=== PATIENT | female | born 1985 | race African-American/Black ===

== ENCOUNTER → 2016-08-16 | Outpatient (CLI) | payer MEDICAID | LOC: RAD 13:49 | PROVIDERS: ATTEND Nurse Practitioner Acute Care | DX: R22.1 Localized swelling, mass and lump, neck (principal) | CPT/HCPCS: 70491 ==

== ENCOUNTER 2016-09-09 08:08 | Outpatient (CLI) | payer MEDICAID ==
[~2016-09-09 08:08] MED LIST: FERRIC CARBOXYMALTOSE 750 MG in NORMAL SALINE 250 ML IV PRN; NORMAL SALINE 250 ML IV PRN
[2016-09-09 08:31] VITALS: BP 96/59
== END 2016-09-09 09:00 | disposition home or self-care (01) ==
LOC: II 08:08 → 5TH 08:09 → II 09:00
PROVIDERS: ATTEND Internal Medicine
PROC: 3E033GC Introduction of Other Therapeutic Substance into Peripheral Vein, Percutaneous Approach (ICD-10-PCS; principal; 2016-09-09)
DX: D50.8 Other iron deficiency anemias (principal); K90.9 Intestinal malabsorption, unspecified
CPT/HCPCS: 96374; J7050; J1439; 96367

== ENCOUNTER 2016-10-20 11:53 | Day surgery (SDC) | payer MEDICAID ==
[2016-10-13 10:51] LABS: HEMATOCRIT 37.2 % (36.0-47.0); HEMOGLOBIN 12.4 g/dL (12.0-15.5); MEAN CORPUSCULAR HEMOGLOBIN 28.9 pg (27.0-33.4); MEAN CORPUSCULAR HGB CONC 33.3 g/dL (32.0-36.0); MEAN CORPUSCULAR VOLUME 87 fl (80-97); RED BLOOD COUNT 4.28 10^6/uL (3.72-5.28); RED CELL DISTRIBUTION WIDTH 20.5 % (11.5-14.0); WHITE BLOOD COUNT 4.4 10^3/uL (4.0-10.5)
[~2016-10-20 11:53] MED LIST changes: +CEFAZOLIN 1 GM/D5W RTU 1 GM/50 ML RTUPB IV PRN; +DEXTROSE 5%-LACTATED RINGERS 1,000 ML IV PRN; -FERRIC CARBOXYMALTOSE 750 MG in NORMAL SALINE 250 ML IV PRN; -NORMAL SALINE 250 ML IV PRN; +RINGERS SOLUTION,LACTATED 1,000 ML IV PRN
[2016-10-20] MEDS ORDERED: LIDOCAINE 1% INJ-PF (10 MG/ML) 30 ML SDV ONE (12:24)
[2016-10-20] MEDS ORDERED: ONDANSETRON HCL INJ/PF 4 MG/2 ML SDV ONE (13:10)
[2016-10-20] MEDS ORDERED: DEXAMETHASONE SOD PHOSPHATE INJ 4 MG/1 ML VIAL ONE (13:10)
[2016-10-20] MEDS ORDERED: SUCCINYLCHOLINE CHLORIDE INJ 200 MG/10 ML VIAL ONE (13:10)
[2016-10-20] MEDS ORDERED: ROCURONIUM BROMIDE INJ 50 MG/5 ML VIAL IV ONE (13:10)
[2016-10-20 13:11] LABS: HEMATOCRIT 35.6 % (36.0-47.0); HEMOGLOBIN 12.1 g/dL (12.0-15.5); HGB HCT DIFFERENCE 0.7; MEAN CORPUSCULAR HEMOGLOBIN 29.8 pg (27.0-33.4); MEAN CORPUSCULAR HGB CONC 33.9 g/dL (32.0-36.0); MEAN CORPUSCULAR VOLUME 88 fl (80-97); RED BLOOD COUNT 4.06 10^6/uL (3.72-5.28); RED CELL DISTRIBUTION WIDTH 19.8 % (11.5-14.0); WHITE BLOOD COUNT 3.8 10^3/uL (4.0-10.5)
[2016-10-20] MEDS ORDERED: PROPOFOL INJ 200 MG/20 ML VIAL IV ONE (13:53)
[2016-10-20] MEDS ORDERED: ACETAMINOPHEN 100 ML IV ONE (13:53)
[2016-10-20] MEDS ORDERED: HYDROMORPHONE HCL INJ/PF 2 MG/ML AMPULE ONE (13:53)
[2016-10-20] MEDS ORDERED: MIDAZOLAM 2 MG/2 ML INJ ONE (13:53)
[2016-10-20] MEDS ORDERED: PROMETHAZINE HCL INJ 25 MG/1 ML VIAL IV PRN ×2 (15:14)
[2016-10-20] MEDS ORDERED: MORPHINE SULFATE 10 MG/ML INJ IV PRN (15:14)
[2016-10-20] MEDS ORDERED: OXYCODONE-ACETAMINOPHEN 5-325 MG TABLET PO PRN ×3 (15:14→16:46)
[2016-10-20] MEDS ORDERED: DIPHENHYDRAMINE HCL 50 MG/ML VIAL IV PRN (15:14)
[2016-10-20] MEDS ORDERED: MEPERIDINE HCL/PF INJ 25 MG/1 ML DISP.SYRIN IV PRN (15:14)
[2016-10-20] MEDS ORDERED: FENTANYL CITRATE INJ/PF 100 MCG/2 ML AMPUL IV PRN ×3 (15:14)
[2016-10-20] MEDS ORDERED: MICROFIBRILLAR COLLAGEN 1 GM PACK ONE (15:49)
[2016-10-20] MEDS ORDERED: ONDANSETRON HCL INJ/PF 4 MG/2 ML SDV IV PRN (16:46)
--- NOTE | 2016-10-20 16:46 | Operative Report ---
Operative Report DATE OF SURGERY: 10/20/16 PREOPERATIVE DIAGNOSIS: Right neck mass consistent with cervical adenopathy POSTOPERATIVE DIAGNOSIS: Same OPERATION: 1. Focused ultrasound of the neck. 2. Open excisional biopsy of enlarged level II cervical lymph node SURGEON: HOLLY HEREDIA 1ST STAFF AUDITOR: KHLOE DEAN ANESTHESIA: GA TISSUE REMOVED OR ALTERED: Enlarged right level II cervical lymph node COMPLICATIONS: None ESTIMATED BLOOD LOSS: scant INTRAOPERATIVE FINDINGS: See below PROCEDURE: The patient was seen in the preoperative holding area the right neck was marked. She was then taken to the operating room where general anesthesia was induced. The patient's neck was exposed, and extended so that the right side of the neck was in the future operative field. The right neck and anterior chest sterile fashion. Surgical plan and surgical timeout conducted. The palpable mass at the angle of the right mandible just anterior to the submandibular gland was marked. I then scanned the neck with a variable frequency linear transducer confirmed the mass which was over 3 cm in length and 2 cm wide. It was just deep to the platysma, and anterior to the great vessels. It was inferior and posterior to the right submandibular gland. The skin was anesthetized with 1% lidocaine without epinephrine. A 3-1/2 cm incision was made proximally 2 fingerbreadths below the mandible, with the incision made on a diagonal. The cutaneous tissue, platysma divided all under direct visualization with electrocautery. Official cervical fascia was divided , and the cut down directly onto the enlarged right neck mass consistent with the level II lymph node. We now proceeded methodically under direct visualization with loupes and headlamp to dissected this enlarged mass from its surrounding charts. Clinically the mass appeared to be consistent with a very enlarged lymph node. It shelled out of its very smoothly. There were multiple small arterial and venous attachments which were taken down with electrocautery as well as small clips. We encountered no neuro-logic tissue as we were anterior to the spinal accessory nerve, inferior to the marginal mandibular nerve and not as deep going counter the lingula nerve. Once the mass came up out of its compartment, the final attachments including to the superior and inferior lymph nodes in the cervical-jugular chain were freed up. The specimen was passed off the table photographed and found to be approximately 4 cm in length. We reinspected our operative field and there was no evidence of bleeding. Changes as well as this point included the deep cervical fascia. We did not Violate any of the deep tissue planes; the the posterior belly of the digastric muscle was visible in the upper recesses of the wound. The sternocleidomastoid muscle anterior order of the wound. Avitene was placed in the recesses of the wound and the wound closed in layers with 3-0 Vicryl leaving the platysma muscle , and the skin closed with 4-0 Ethilon in a running continuous fashion. Steri- Strips applied. She tolerated the procedure well and was taken to recovery in stable condition. The physician assistant to the ceo, Ms. Dean, provided assistance during this case by: Assisting , retracting tissue, instillation of local anesthesia and closure of skin incisions.
[2016-10-20] MEDS ORDERED: METOCLOPRAMIDE HCL INJ/PF 10 MG/2 ML SDV ONE (16:50)
--- NOTE | 2016-10-20 16:50 | PDOC DISCHARGE SUMMARY ---
Discharge Summary (SDC) - Discharge Final Diagnosis: Cervical lymphadenopathy right neck level II Date of Surgery: 10/20/16 Discharge Date: 10/20/16 Condition: Good Treatment or Instructions: [facility] [address] [place] [id number] Discharge Instructions: Neck Surgery 1. General Information: a. Do not drive a car or operate machinery for 1-2 weeks or as long as taking narcotics for pain. b. Do not consume alcohol, tranquilizers, sleeping medications or any non- prescribed medications for 24 hours unless approved by your doctor or as long as taking pain medication. c. Do not make important decisions or sign any important papers for the first 24 hours after surgery. d. When discharged home the same day of surgery have a responsible person with you for the first night. 2. Activity Restrictions: 4 weeks. a. Avoid heavy lifting > 10 lbs, straining, sports, mowing lawn, shoveling snow, vacuum cleaning and bending over a lot. Limit bending to taking a shower and getting dressed. Sleep with head elevated (2 pillows). b. Walking is important to avoid blood clots in the legs and deep breathing can prevent pneumonia. c. It is fine to go up and down steps, ride in a car, and use a stationary bike with low resistance. 3. Treatment: a. The dressing can be removed the day after surgery and to shower then daily is fine, but you should not bathe in the tub or go swimming for 2 weeks. The paper strips (steri-strips) on the skin will fall off and can get wet with a shower, just pat them dry. The sutures dissolve and the strips will be removed in the office on your follow up visit if they have not fallen off by then. May shower 24 hours after surgery; if your incision was glued you may wash your neck and expect glue to fall off in about 2 weeks. b. Do not use oils, powders or lotion on your incision until after the first postoperative visit. Then you may begin to apply daily to the incision a cream of your choice (Vitamin E, cocoa butter, scar creams) to help soften the scar. c. If you are fair skinned it would be yarbrough to use sunscreen on the scar for the first 6 months or keep it covered to avoid tanning pigment deposits being trapped in the scar creating a dark line instead of a pink scar. 4. Medications: a. You may take narcotic prescription tablets for pain if needed, one or two every 4 hours (Percocet ). b. Stop the narcotic when able since you cannot take and drive and they may cause constipation. You may switch to plain Tylenol, Advil or Aleve as you transition from the narcotic. Many adults find good pain relief with Ibuprofen 600-800 mg three times a day with meals to work well to avoid narcotic use. High doses of Ibuprofen should only be used for short courses since it can cause indigestion, ulcer bleeding in the stomach and harm kidney function. c. You should resume all normal medications unless a change is specified by your doctors. d. a. If going home same day of surgery you should begin with clear liquids and if do well then advance to a normal diet with foods low in fat and protein. Small portion sizes may be yarbrough the first night to lessen risk of vomiting. b. When discharged after a hospital stay you may resume a normal diet. 6. Notify Physician If: a. Worsening of pain or swelling in neck, persistent bleeding at the operative site, nausea and vomiting, fever above 101, unable to urinate and bladder pressure after 8-12 hours, increased redness, drainage, or foul smelling discharge from the incision. b. If you have difficulty breathing or chest pain, call an ambulance and/or go to the Emergency Room. 7. Follow Up Care: a. Schedule a follow up appointment with your doctor for 2 weeks. In the event of any postoperative problems or questions or you may call the office during business hours or the On-Call physician evenings and weekends at [facility]. [facility] 8. I understand the instructions for my postoperative care as described above and a copy has been given to me. Patient/Significant Other Witness Date Prescriptions: Oxycodone HCl/Acetaminophen [Percocet 5-325 mg Tablet] 2 tab PO ASDIR PRN #15 tab PRN Reason: Discharge Diet: Regular Discharge Activity: No Lifting Over 10 Pounds, No Lifting/Push/Pulling Home Care Assistance: None Needed Report the Following to Your Physician Immediately: Shortness of Breath, Increase in Pain, Fever over 101 Degrees
[2016-10-20] MEDS: PROMETHAZINE HCL 25 MG SUPP.RECT PR ONE ×2 (18:05→21:55)
[2016-10-20 21:38] VITALS: BP 108/72
== END 2016-10-20 22:10 | disposition home or self-care (01) ==
LOC: OROUT 11:53 → 2S 19:32 → OROUT 22:10
PROVIDERS: ATTEND Surgery
PROC: 07B10ZX Excision of Right Neck Lymphatic, Open Approach, Diagnostic (ICD-10-PCS; principal; 2016-10-20 15:00)
DX: R59.9 Enlarged lymph nodes, unspecified (principal); D64.9 Anemia, unspecified; R51 Headache; Z87.891 Personal history of nicotine dependence
CPT/HCPCS: 38500; 36415 ×2; 88185 ×15; 88184; 85027 ×2; 81025; 88342 ×2; 88341 ×2; 88307 ×2; J2250; J0690; J3490 ×4; J1100; J2765; J1170; J0330; J2405; J2704; J0131; 300

== ENCOUNTER → 2016-12-21 | Outpatient (CLI) | payer MEDICAID ==
--- NOTE | 2016-12-21 15:39 | RADIOLOGY REPORT (SQ) ---
EXAM DESCRIPTION: HAND RIGHT 3 VIEWS COMPLETED DATE/TIME: 12/21/2016 3:31 pm REASON FOR STUDY: UNSP INJURY OF RIGHT WRIST, HAND AND FINGER(S), INIT ENCNTR S69.91XA UNSP INJURY OF RIGHT WRIST, HAND AND FINGER(S), INI COMPARISON: None. EXAM PARAMETERS: NUMBER OF VIEWS: Three views. TECHNIQUE: AP, lateral and oblique radiographic images acquired of the right hand. LIMITATIONS: None. FINDINGS: MINERALIZATION: Normal. BONES: No acute fracture or dislocation. No worrisome bone lesions. JOINTS: No effusions. SOFT TISSUES: No soft tissue swelling. No foreign body. OTHER: No other significant finding. IMPRESSION: NEGATIVE STUDY OF THE RIGHT HAND. NO RADIOGRAPHIC EVIDENCE OF ACUTE INJURY. TECHNICAL DOCUMENTATION: JOB ID: [id number] [employer]- All Rights Reserved
== END ==
LOC: OD 15:08
PROVIDERS: ATTEND Nurse Practitioner Acute Care
DX: S69.91XA Unspecified injury of right wrist, hand and finger(s), initial encounter (principal); X58.XXXA Exposure to other specified factors, initial encounter

== ENCOUNTER 2017-01-06 15:49 | Emergency (ER) | payer MEDICAID ==
[2017-01-06 16:41] LABS: ABSOLUTE LYMPHOCYTES (AUTO) 0.8 10^3/uL (0.5-4.7); ABSOLUTE MONOCYTES (AUTO) 0.3 10^3/uL (0.1-1.4); ABSOLUTE NEUT (AUTO) 5.2 10^3/uL (1.7-8.2); BASOPHILS % (AUTO) 0.3 % (0-2); EOSINOPHILS % (AUTO) 0.1 % (0-6); HEMATOCRIT 36.9 % (36.0-47.0); HEMOGLOBIN 12.3 g/dL (12.0-15.5); LYMPHOCYTES % (AUTO) 12.2 % (13-45); MEAN CORPUSCULAR HGB CONC 33.3 g/dL (32.0-36.0); MEAN CORPUSCULAR VOLUME 93 fl (80-97); MONOCYTES % (AUTO) 5.1 % (3-13); RED BLOOD COUNT 3.96 10^6/uL (3.72-5.28); RED CELL DISTRIBUTION WIDTH 12.9 % (11.5-14.0); SEGMENTED NEUTROPHILS % (AUTO) 82.3 % (42-78); WHITE BLOOD COUNT 6.3 10^3/uL (4.0-10.5)
[2017-01-06 17:25] LABS: ALANINE AMINOTRANSFERASE 28 U/L (9-52); ALBUMIN 3.3 g/dL (3.5-5.0); ALKALINE PHOSPHATASE 52 U/L (38-126); ANION GAP 11 (5-19); ASPARTATE AMINO TRANSFERASE 23 U/L (14-36); BILIRUBIN,DIRECT 0.3 mg/dL (0.0-0.4); BILIRUBIN,TOTAL 0.8 mg/dL (0.2-1.3); BLOOD UREA NITROGEN 6 mg/dL (7-20); CALCIUM 8.8 mg/dL (8.4-10.2); CARBON DIOXIDE 22 mmol/L (22-30); CHLORIDE 108 mmol/L (98-107); CREATININE RESULT 0.62 mg/dL (0.52-1.25); GLUCOSE 76 mg/dL (75-110); POTASSIUM 3.9 mmol/L (3.6-5.0); SODIUM 140.9 mmol/L (137-145); TOTAL PROTEIN 6.3 g/dL (6.3-8.2)
[2017-01-06] MEDS ORDERED: RINGERS SOLUTION,LACTATED 1,000 ML IV PRN (17:26)
[2017-01-06] MEDS ORDERED: LORAZEPAM INJ 2 MG/1 ML VIAL IV ONE (17:26)
[2017-01-06] MEDS ORDERED: LEVETIRACETAM 1500 MG/NACL-ISO 100 ML IV ONE (17:26)
[2017-01-06 17:27] LABS: ALCOHOL < 10 mg/dL (NONE DETECTED)
--- NOTE | 2017-01-06 17:27 | ER Document Report ---
ED Seizure - General Chief Complaint: Probable Seizure Stated Complaint: POSSIBLE SEIZURE Time Seen by Provider: 01/06/17 17:10 Mode of Arrival: Ambulatory Information source: Patient Notes: Patient is a 31-year-old female with a history of seizures who presents to the ER today for seizure prior to arrival. Patient states that she used to be on Keppra but they took her off because she had not had any seizures in a long time. She has not been on Keppra for 2 years. Patient states that today she was laying in bed and woke up to her brother standing over her and she had urinated on herself and bitten her tongue. She states that her brother witnessed a seizure and states that she was generalized shaking. She does not remember the seizure activity. She denies any recent illness. - Related Data Allergies/Adverse Reactions: No Known Allergies Allergy (Verified 01/06/17 15:56) Home Medications: Current Home Medications Aspirin/Caffeine [Bc Powder Packet] 1 pkt PO DAILY 01/06/17 [History] Past Medical History - General Information source: Patient - Social History Smoking Status: Never Smoker Frequency of alcohol use: Occasional Drug Abuse: None Family History: Reviewed & Not Pertinent - Past Medical History Cardiac Medical History: Denies: Hx Coronary Artery Disease, Hx Heart Attack, Hx Hypertension Pulmonary Medical History: Denies: Hx Asthma, Hx Bronchitis, Hx COPD, Hx Pneumonia Neurological Medical History: Reports: Hx Seizures - SEIZURE X 1, 2 YEARS AGO, NO MEDS, NO SEIZURE SINCE. Denies: Hx Cerebrovascular Accident Musculoskeltal Medical History: Denies Hx Arthritis Past Surgical History: Reports: Hx Orthopedic Surgery - L ACL, Bilat shoulders w /hardware - Immunizations Hx Diphtheria, Pertussis, Tetanus Vaccination: Yes Review of Systems - Review of Systems Constitutional: No symptoms reported EENT: No symptoms reported Cardiovascular: No symptoms reported Respiratory: No symptoms reported Gastrointestinal: No symptoms reported Genitourinary: No symptoms reported Female Genitourinary: No symptoms reported Musculoskeletal: No symptoms reported Skin: No symptoms reported Hematologic/Lymphatic: No symptoms reported Neurological/Psychological: See HPI Physical Exam - Vital signs Vitals: Resp 18 01/06/17 15:50 - Notes Notes: PHYSICAL EXAMINATION: GENERAL: Appears postictal, tired, but in no acute distress. HEAD: Atraumatic, normocephalic. EYES: Pupils equal round and reactive to light, extraocular movements intact, sclera anicteric, conjunctiva are normal. ENT: Small laceration to the left side of the tongue, no active bleeding NECK: Normal range of motion, supple without lymphadenopathy LUNGS: CTAB and equal. No wheezes rales or rhonchi. HEART: Regular rate and rhythm without murmurs ABDOMEN: Soft, no tenderness. No guarding, no rebound BACK: no vertebral tenderness, normal ROM GI/: no CVA tenderness EXTREMITIES: Normal range of motion, no pitting edema. No cyanosis. NEUROLOGICAL: Appears postictal, otherwise cranial nerves grossly intact. Normal sensory/motor exams. PSYCH: Normal mood, normal affect. SKIN: Warm, Dry, normal turgor, no rashes or lesions noted Course - Re-evaluation Re-evalutation: 01/06/17 18:48 Patient was loaded up with IV Keppra here, fluids, Ativan. I will start patient on Keppra and have her follow-up with the neurologist outpatient. - Vital Signs Vital signs: Temp Pulse Resp BP Pulse Ox 98.3 F 20 107/66 97 01/06/17 15:55 01/06/17 18:27 01/06/17 18:27 01/06/17 18:27 - Laboratory Result Diagrams: 01/06/17 16:18 01/06/17 16:18 Laboratory results interpreted by me: 01/06/17 01/06/17 16:18 16:18 Plt Count 128 L Seg Neutrophils % 82.3 H Lymphocytes % 12.2 L Chloride 108 H BUN 6 L Albumin 3.3 L Discharge - Discharge Clinical Impression: Seizure Condition: Stable Disposition: HOME, SELF-CARE Additional Instructions: Return immediately for any new or worsening symptoms. Follow up with primary care provider, call tomorrow to make followup appointment. Prescriptions: Levetiracetam [Keppra 500 mg Tablet] 500 mg PO Q12 #40 tablet Forms: Return to Work Referrals: AIME WATTS PA-C [Primary Care Provider] - Follow up as needed KEYSHA PELAYO MD [ACTIVE STAFF] - Follow up as needed
[2017-01-06 18:34] VITALS: BP 107/66
[2017-01-06 19:11] LABS: APPEARANCE,URINE CLEAR; BILIRUBIN,URINE NEGATIVE (NEGATIVE); GLUCOSE, URINE NEGATIVE (NEGATIVE); KETONES,URINE NEGATIVE (NEGATIVE); LEUKOCYTE ESTERASE,URINE TRACE (NEGATIVE); NITRITE,URINE NEGATIVE (NEGATIVE); PROTEIN,URINE NEGATIVE (NEGATIVE); URINE SPECIFIC GRAVITY 1.006; UROBILINOGEN,URINE NEGATIVE mg/dL (<2.0)
[2017-01-06 19:21] LABS: URINE BARBITURATES SCREEN NEGATIVE; URINE METHADONE SCREEN NEGATIVE; URINE OPIATES LOW NEGATIVE; URINE PHENCYCLIDINE SCREEN NEGATIVE
== END 2017-01-06 18:57 | disposition home or self-care (01) ==
LOC: ER 15:49
DX: R56.9 Unspecified convulsions (principal); R32 Unspecified urinary incontinence
CPT/HCPCS: 99284; 96375; 96365; 96368; 36415; 80307 ×2; 83735; 84703; 85025; 80053; 81001; J2060; J7120; J1953

== ENCOUNTER 2017-02-07 23:14 | Emergency (ER) | payer MEDICAID ==
[2017-02-07 23:40] VITALS: BP 109/67
== END 2017-02-07 23:58 | disposition left against medical advice (07) ==
LOC: ER 23:14
DX: Z53.21 Procedure and treatment not carried out due to patient leaving prior to being seen by health care provider (principal)

== ENCOUNTER 2018-02-01 10:42 | Emergency (ER) | payer MEDICAID ==
[2018-02-01 10:48] VITALS: BP 111/71
--- NOTE | 2018-02-01 11:01 | ER Document Report ---
ED Medical Screen (RME) - General Chief Complaint: Facial Swelling Stated Complaint: FACIAL SWELLING Time Seen by Provider: 02/01/18 10:49 Mode of Arrival: Ambulatory Information source: Patient TRAVEL OUTSIDE OF THE [place] IN LAST 30 DAYS: No - HPI Patient complains to provider of: Left facial swelling Onset: This morning Onset/Duration: Gradual Quality of pain: Achy Severity: Mild Pain Level: 2 Exacerbated by: Denies Relieved by: Denies Notes: 02/01/18 11:01 Patient is a 32-year-old female presenting to the emergency room complaining of left facial swelling, 2 nights ago she had a seizure in the middle the night causing an injury to her left upper lip with laceration, [facility] was seen [facility] and they told her to perform salt water gargles and did not put her on any antibiotics, this morning when she woke up she noted her left face is swollen and painful - Related Data Allergies/Adverse Reactions: No Known Allergies Allergy (Verified 02/01/18 10:42) Past Medical History - Social History Frequency of alcohol use: Social Drug Abuse: Marijuana - Past Medical History Cardiac Medical History: Denies: Hx Coronary Artery Disease, Hx Heart Attack, Hx Hypertension Pulmonary Medical History: Denies: Hx Asthma, Hx Bronchitis, Hx COPD, Hx Pneumonia Neurological Medical History: Reports: Hx Seizures - SEIZURE X 1, 2 YEARS AGO, NO MEDS, NO SEIZURE SINCE. Denies: Hx Cerebrovascular Accident Renal/ Medical History: Denies: Hx Peritoneal Dialysis Musculoskeltal Medical History: Denies Hx Arthritis Past Surgical History: Reports: Hx Orthopedic Surgery - L ACL, Bilat shoulders w /hardware - Immunizations Hx Diphtheria, Pertussis, Tetanus Vaccination: Yes Physical Exam - Vital signs Vitals: Temp Pulse Resp BP Pulse Ox 98.6 F 69 14 111/71 100 02/01/18 10:46 02/01/18 10:46 02/01/18 10:46 02/01/18 10:46 02/01/18 10:46 Course - Vital Signs Vital signs: Temp Pulse Resp BP Pulse Ox 98.6 F 69 14 111/71 100 02/01/18 10:46 02/01/18 10:46 02/01/18 10:46 02/01/18 10:46 02/01/18 10:46 Doctor's Discharge - Discharge Referrals: PETRONA DE LEON MD [Primary Care Provider] - Follow up as needed
[2018-02-01 11:48] LABS: ABSOLUTE LYMPHOCYTES (AUTO) 1.2 10^3/uL (0.5-4.7); ABSOLUTE MONOCYTES (AUTO) 0.5 10^3/uL (0.1-1.4); ABSOLUTE NEUT (AUTO) 3.8 10^3/uL (1.7-8.2); BASOPHILS % (AUTO) 0.3 % (0-2); EOSINOPHILS % (AUTO) 0.3 % (0-6); HEMATOCRIT 36.6 % (36.0-47.0); HEMOGLOBIN 12.5 g/dL (12.0-15.5); LYMPHOCYTES % (AUTO) 22.1 % (13-45); MEAN CORPUSCULAR HEMOGLOBIN 29.8 pg (27.0-33.4); MEAN CORPUSCULAR VOLUME 88 fl (80-97); MONOCYTES % (AUTO) 8.6 % (3-13); PLATELET COUNT 144 10^3/uL (150-450); RED BLOOD COUNT 4.18 10^6/uL (3.72-5.28); RED CELL DISTRIBUTION WIDTH 13.3 % (11.5-14.0); SEGMENTED NEUTROPHILS % (AUTO) 68.7 % (42-78); TOTAL CELLS COUNTED % (AUTO) 100 %; WHITE BLOOD COUNT 5.5 10^3/uL (4.0-10.5)
[2018-02-01 12:14] LABS: ALANINE AMINOTRANSFERASE 35 U/L (9-52); ALBUMIN 3.9 g/dL (3.5-5.0); ALKALINE PHOSPHATASE 55 U/L (38-126); ANION GAP 11 (5-19); ASPARTATE AMINO TRANSFERASE 42 U/L (14-36); BILIRUBIN,DIRECT 0.2 mg/dL (0.0-0.4); BLOOD UREA NITROGEN 8 mg/dL (7-20); CARBON DIOXIDE 23 mmol/L (22-30); CHLORIDE 109 mmol/L (98-107); GLUCOSE 93 mg/dL (75-110); POTASSIUM 3.7 mmol/L (3.6-5.0); SODIUM 142.5 mmol/L (137-145); TOTAL PROTEIN 7.6 g/dL (6.3-8.2)
[2018-02-01] MEDS ORDERED: AMPICILLIN SOD/SULBACTAM 3 GM VIAL IV ONE (13:23)
--- NOTE | 2018-02-01 13:23 | RADIOLOGY REPORT (SQ) ---
EXAM DESCRIPTION: CT FACIAL AREA WITH COMPLETED DATE/TIME: 02/01/2018 12:43 pm REASON FOR STUDY: LEFT FACIAL SWELLING COMPARISON: CT soft tissue neck 08/16/2016 TECHNIQUE: Post contrast images through the facial bones and orbits windowed for bone and soft tissu e. Additional coronal and sagittal reconstructed images reviewed. All images stored on PACS. All CT scanners at this facility use dose modulation, iterative reconstruction, and/or weight based d osing when appropriate to reduce radiation dose to as low as reasonably achievable (ALARA). [facility]: Dose Right [facility]: CareDose [facility]: Dose Right [facility]: Teradose 4D [facility]: Storactive CONTRAST TYPE AND DOSE: contrast/concentration: Isovue 370.00 mg/ml; Total Contrast Delivered: 50.0 ml; Total Saline Delivered: 55.0 ml RENAL FUNCTION: None required. The patient is less than 50 years old. RADIATION DOSE: 45.4 mGy . LIMITATIONS: Streak artifact from metallic dental work FINDINGS: FACIAL BONES: No fracture or bone lesion. ORBITS: Intact. No fracture. Symmetric intact globes and retroorbital soft tissues. PARANASAL SINUSES: Mild mucous membrane thickening in the bilateral ethmoid air cells. subcentimeter cyst left sphenoid sinus No nasal polyps. Maxillary sinus outlets are patent. SOFT TISSUES: There is left facial soft tissue swelling over the left alveolar ridge and left mandibl e region, involving a 4 x 2 x 2 cm area. This could be a hematoma or could be related to cellulitis/ infection. Findings discussed with Paty Cruz in the emergency room. INFERIOR BRAIN: Limited view. No acute findings. OTHER: Prior enlarged lymph node right jugulodigastric region seen on CT soft tissue neck 08/16/2016 h as been surgically removed. Surgical clips are present superficial to the right carotid bifurcation. No adenopathy on today's study IMPRESSION: Soft tissue swelling overall 4 x 2 x 2 cm area of left lower alveolar ridge edge and man dible, cellulitis versus hematoma. No underlying mandible or facial fracture. TECHNICAL DOCUMENTATION: JOB ID: [id number] Quality ID # [id number]: Final reports with documentation of one or more dose reduction techniques (e.g., Au tomated exposure control, adjustment of the mA and/or kV according to patient size, use of iterative reconstruction technique) 2010 [employer]- All Rights Reserved Reading location - IP/workstation name: [email or web address]
[2018-02-01] MEDS ORDERED: KETOROLAC TROMETHAMINE INJ/PF 30 MG/1 ML SDV IV ONE (13:24)
--- NOTE | 2018-02-01 13:30 | ER Document Report ---
HPI - HPI Patient complains to provider of: Facial swelling Onset: This morning Onset/Duration: Gradual Quality of pain: Achy Pain Level: 2 Context: Patient states that she had a seizure and injured her face and mouth 2 days ago. [facility] having a [facility] and was told to just rinse her mouth out with gargles. Patient states today she woke up and her face was swollen. Patient denies any fever. Patient states she has been compliant with taking her antiepileptic medications and has not had any recent dose changes. Associated Symptoms: Other. denies: Fever Exacerbated by: Movement Relieved by: Denies Similar symptoms previously: No Recently seen / treated by doctor: Yes - ROS ROS below otherwise negative: Yes Systems Reviewed and Negative: Yes All other systems reviewed and negative - CONSTITUTIONAL Constitutional: DENIES: Fever - EENT Notes: Mouth pain and swelling - RESPIRATORY Respiratory: DENIES: Coughing - GASTROINTESTINAL Gastrointestinal: DENIES: Nausea, Patient vomiting - MUSCULOSKELETAL Musculoskeletal: DENIES: Extremity pain, Back Pain, Neck Pain - DERM Skin Color: Normal Notes: Laceration inside mouth into left facial area Past Medical History - General Information source: Patient - Social History Smoking Status: Never Smoker Frequency of alcohol use: Social Drug Abuse: Marijuana Occupation: None Lives with: Friend Family History: Reviewed & Not Pertinent Patient has suicidal ideation: No Patient has homicidal ideation: No - Past Medical History Cardiac Medical History: Denies: Hx Coronary Artery Disease, Hx Heart Attack, Hx Hypertension Pulmonary Medical History: Denies: Hx Asthma, Hx Bronchitis, Hx COPD, Hx Pneumonia Neurological Medical History: Reports: Hx Seizures - SEIZURE X 1, 2 YEARS AGO, NO MEDS, NO SEIZURE SINCE. Denies: Hx Cerebrovascular Accident Renal/ Medical History: Denies: Hx Peritoneal Dialysis Musculoskeletal Medical History: Denies Hx Arthritis Past Surgical History: Reports: Hx Orthopedic Surgery - L ACL, Bilat shoulders w /hardware - Immunizations Hx Diphtheria, Pertussis, Tetanus Vaccination: Yes Vertical Provider Document - CONSTITUTIONAL Agree With Documented VS: Yes Exam Limitations: No Limitations General Appearance: WD/WN, No Apparent Distress - INFECTION CONTROL TRAVEL OUTSIDE OF THE [place] IN LAST 30 DAYS: No - HEENT HEENT: Normocephalic, PERRLA Mouth Diagram: 1 - superficial lac with surrounding erythema, edema Notes: Superficial facial laceration to left side of face just lateral to left upper lip - NECK Neck: Normal Inspection, Supple. negative: Lymphadenopathy-Left, Lymphadenopathy-Right - RESPIRATORY Respiratory: Breath Sounds Normal, No Respiratory Distress - CARDIOVASCULAR Cardiovascular: Regular Rate, Regular Rhythm, No Murmur - BACK Back: Normal Inspection - MUSCULOSKELETAL/EXTREMETIES Musculoskeletal/Extremeties: MAEW - NEURO Level of Consciousness: Awake, Alert, Appropriate Motor/Sensory: No Motor Deficit - DERM Integumentary: Warm, Laceration - superficial. negative: Abscess Course - Re-evaluation Re-evalutation: 02/01/18 13:26 Patient without any drainable abscess noted on CT scan. No appreciable fracture. Patient without any potential airway compromise. Patient with superficial laceration to the inside left upper lip with overlying facial laceration, area does not appear to communicate. Injury occurred 2 days ago. Plan to treat for cellulitis at this time. Good return precautions given to patient. Patient encouraged to follow-up with her primary doctor tomorrow for recheck. Patient states she has been compliant with her antiepileptic medications. - Vital Signs Vital signs: Temp Pulse Resp BP Pulse Ox 98.6 F 69 14 111/71 100 02/01/18 10:46 02/01/18 10:46 02/01/18 10:46 02/01/18 10:46 02/01/18 10:46 - Laboratory Result Diagrams: 02/01/18 11:30 02/01/18 11:30 Laboratory results interpreted by me: 02/01/18 02/01/18 11:30 11:30 Plt Count 144 L Chloride 109 H AST 42 H 02/01/18 13:26 Labs- Entire Visit 02/01/18 02/01/18 02/01/18 11:30 11:30 11:30 WBC 5.5 RBC 4.18 Hgb 12.5 Hct 36.6 MCV 88 MCH 29.8 MCHC 34.0 RDW 13.3 Plt Count 144 L Seg Neutrophils % 68.7 Lymphocytes % 22.1 Monocytes % 8.6 Eosinophils % 0.3 Basophils % 0.3 Absolute Neutrophils 3.8 Absolute Lymphocytes 1.2 Absolute Monocytes 0.5 Absolute Eosinophils 0.0 Absolute Basophils 0.0 Sodium 142.5 Potassium 3.7 Chloride 109 H Carbon Dioxide 23 Anion Gap 11 BUN 8 Creatinine 0.55 Est GFR ( Amer) > 60 Est GFR (Non-Af Amer) > 60 Glucose 93 Calcium 9.0 Total Bilirubin 1.0 Direct Bilirubin 0.2 Neonat Total Bilirubin Not Reportable Neonat Direct Bilirubin Not Reportable Neonat Indirect Bili Not Reportable AST 42 H ALT 35 Alkaline Phosphatase 55 Total Protein 7.6 Albumin 3.9 Serum HCG, Qual NEGATIVE - Diagnostic Test Radiology reviewed: Reports reviewed Discharge - Discharge Clinical Impression: Superficial laceration of face Laceration of oral cavity Qualifiers: Encounter type: initial encounter Qualified Code(s): S01.512A - Laceration without foreign body of oral cavity, initial encounter Cellulitis Qualifiers: Site of cellulitis: mouth Qualified Code(s): K12.2 - Cellulitis and abscess of mouth Condition: Stable Disposition: HOME, SELF-CARE Instructions: Antibiotic Therapy ([facility]), Augmentin ([facility]), Oral Narcotic Medication ([facility]) Additional Instructions: Return immediately for any new or worsening symptoms Followup with your primary care provider tomorrow for recheck Prescriptions: Amox Tr/Potassium Clavulanate [Augmentin 875-125 Tablet] 1 tab PO BID 10 Days tablet Hydrocodone/Acetaminophen [[place] 5-325 Tablet] 1 each PO Q6 PRN #12 tablet PRN Reason: Naproxen [Naprosyn 250 Nmg Tablet] 1 tab PO BID #14 tablet Referrals: [facility] [Provider Group] - Follow up tomorrow
== END 2018-02-01 15:13 | disposition home or self-care (01) ==
LOC: ER 10:42
DX: S01.512A Laceration without foreign body of oral cavity, initial encounter (principal); S01.81XA Laceration without foreign body of other part of head, initial encounter; K12.2 Cellulitis and abscess of mouth; R22.0 Localized swelling, mass and lump, head; X58.XXXA Exposure to other specified factors, initial encounter
CPT/HCPCS: 99284; 96375; 96365; 36415; 87040; 84703; 85025; 80053; 70487; J0295; J1885

== ENCOUNTER 2018-03-23 16:45 | Emergency (ER) | payer MEDICAID ==
[2018-03-23] MEDS ORDERED: ACETAMINOPHEN 325 MG TABLET PO ONE (18:15)
[2018-03-23] MEDS ORDERED: IBUPROFEN 600 MG TABLET PO ONE (18:15)
--- NOTE | 2018-03-23 18:37 | RADIOLOGY REPORT (SQ) ---
EXAM DESCRIPTION: HAND RIGHT 3 VIEWS COMPLETED DATE/TIME: 03/23/2018 6:30 pm REASON FOR STUDY: index finger lac COMPARISON: None. EXAM PARAMETERS: NUMBER OF VIEWS: Three views. TECHNIQUE: AP, lateral and oblique radiographic images acquired of the right hand. LIMITATIONS: None. FINDINGS: MINERALIZATION: Normal. BONES: No acute fracture or dislocation. No worrisome bone lesions. JOINTS: No effusions. SOFT TISSUES: No soft tissue swelling. No foreign body. OTHER: No other significant finding. IMPRESSION: NEGATIVE STUDY OF THE RIGHT HAND. NO RADIOGRAPHIC EVIDENCE OF ACUTE INJURY. TECHNICAL DOCUMENTATION: JOB ID: [id number] [employer]- All Rights Reserved Reading location - IP/workstation name: [email or web address]
[2018-03-23] MEDS ORDERED: LIDOCAINE 1% INJ-PF (10 MG/ML) 30 ML SDV ONE (18:40)
--- NOTE | 2018-03-23 19:15 | ER Document Report ---
ED General - General Chief Complaint: Laceration Stated Complaint: FINGER LACERATION Time Seen by Provider: 03/23/18 18:15 Notes: Patient is a 33-year-old female without chronic medical problems who is presents after accidentally cutting her right hand on glass just prior to arrival. The patient states that she was washing dishes when she cut her dorsal base of the second finger on the right hand. She describes a dull, throbbing, constant pain to the area since that time. Nothing improves or worsens that pain. Her tetanus is up-to-date. She denies any limited range of motion with the digit or any weakness or numbness. No additional injuries. She has not contacted her primary care doctor regarding today's concerns. TRAVEL OUTSIDE OF THE [place] IN LAST 30 DAYS: No - Related Data Allergies/Adverse Reactions: No Known Allergies Allergy (Verified 03/23/18 16:46) Past Medical History - General Information source: Patient - Social History Smoking Status: Never Smoker Chew tobacco use (# tins/day): No Frequency of alcohol use: Occasional Drug Abuse: Marijuana Lives with: Family Family History: Reviewed & Not Pertinent Patient has suicidal ideation: No Patient has homicidal ideation: No - Past Medical History Cardiac Medical History: Denies: Hx Coronary Artery Disease, Hx Heart Attack, Hx Hypertension Pulmonary Medical History: Denies: Hx Asthma, Hx Bronchitis, Hx COPD, Hx Pneumonia Neurological Medical History: Reports: Hx Seizures - SEIZURE X 1, 2 YEARS AGO, NO MEDS, NO SEIZURE SINCE. Denies: Hx Cerebrovascular Accident Renal/ Medical History: Denies: Hx Peritoneal Dialysis Musculoskeletal Medical History: Denies Hx Arthritis Past Surgical History: Reports: Hx Orthopedic Surgery - L ACL, Bilat shoulders w /hardware - Immunizations Hx Diphtheria, Pertussis, Tetanus Vaccination: Yes Review of Systems - Review of Systems Notes: Constitutional: Negative for fever. Eyes: Negative for visual changes. ENT: Negative for facial injury Cardiovascular: Negative for chest injury. Respiratory: Negative for shortness of breath. Gastrointestinal: Negative for abdominal injury. Genitourinary: Negative for genital injury Musculoskeletal: Negative for back injury. Skin: Positive for laceration/abrasions. Neurological: Negative for head injury. Physical Exam - Vital signs Vitals: Temp Pulse Resp BP Pulse Ox 98.0 F 76 20 106/68 100 03/23/18 16:49 03/23/18 16:49 03/23/18 16:49 03/23/18 16:49 03/23/18 16:49 Interpretation: Normal Notes: PHYSICAL EXAMINATION: GENERAL: Well-appearing, well-nourished and in no acute distress. HEAD: Atraumatic, normocephalic. EYES: sclera anicteric, conjunctiva are normal. ENT: Moist mucous membranes. NECK: Normal range of motion LUNGS: Normal work of breathing HEART: 2+ radial pulses bilaterally EXTREMITIES: no pitting or edema. No cyanosis. Full flexion and extension against resistance at the MCP DIP and PIP of all digits of the right hand NEUROLOGICAL: No focal neurological deficits. Moves all extremities spontaneously and on command. PSYCH: Normal mood, normal affect. SKIN: Warm, Dry, normal turgor, 2 cm irregular laceration over the MCP of the second digit of the right hand on the dorsal surface Course - Re-evaluation Re-evalutation: 03/23/18 19:14 Patient presents with a laceration over the MCP of her right second digit that occurred just prior to arrival. X-ray without evidence of a retained foreign body or bony injury. She has full flexion and extension at the MCP, DIP and PIP. Full sensation. Capillary refill is less than 1 second in all digits of the right hand. Her tetanus is already up-to-date. The wound was closed without difficulty after irrigation. At this time will discharge with return precautions and follow-up recommendations. Verbal discharge instructions given a the bedside and opportunity for questions given. Medication warnings reviewed. Patient is in agreement with this plan and has verbalized understanding of return precautions and the need for primary care follow-up for stitch removal in 7 days. - Vital Signs Vital signs: Temp Pulse Resp BP Pulse Ox 98.7 F 58 L 18 102/59 L 99 03/23/18 19:39 03/23/18 19:39 03/23/18 19:39 03/23/18 19:39 03/23/18 19:39 - Diagnostic Test Radiology reviewed: Image reviewed, Reports reviewed Radiology results interpreted by me: 03/23/18 19:15 Right hand x-ray: No acute fracture or retained foreign body Procedures - Laceration/Wound Repair Right Hand Wound length (cm): 2 Wound's Depth, Shape: Irregular Laceration pre-procedure: Sterile PPE donned Anesthetic type: 1% Lidocaine Volume Anesthetic (mLs): 1 Wound explored: Clean Irrigated w/ Saline (mLs): 500 Wound Debrided: Minimal Wound Repaired With: Sutures Suture Size/Type: 5:0, Nylon Number of Sutures: 3 Layer Closure?: No Post-procedure wound care: Sterile dressing applied Post-procedure NV exam normal: Yes Complications: No Discharge - Discharge Clinical Impression: Laceration of right hand Qualifiers: Encounter type: initial encounter Foreign body presence: without foreign body Qualified Code(s): S61.411A - Laceration without foreign body of right hand, initial encounter Condition: Good Disposition: HOME, SELF-CARE Additional Instructions: Please return to your primary doctor, the ED, or an urgent care in 7 days for suture removal. Return immediately if you develop spreading redness around the wound, pus from the wound, worsening pain, or a fever of >100.4. Keep the area clean and dry. Wash gently with soap and water twice daily and cover with antibiotic ointment. Referrals: PETRONA DE LEON MD [Primary Care Provider] - Follow up as needed
[2018-03-23 19:39] VITALS: BP 102/59
== END 2018-03-23 19:43 | disposition home or self-care (01) ==
LOC: ER 16:45
DX: S61.411A Laceration without foreign body of right hand, initial encounter (principal); W25.XXXA Contact with sharp glass, initial encounter; Y93.G1 Activity, food preparation and clean up
CPT/HCPCS: 99283; 73130; 12001; J3490 ×2

== ENCOUNTER 2018-04-18 17:48 | Emergency (ER) | payer MEDICAID ==
[2018-04-18] MEDS ORDERED: LEVETIRACETAM 500 MG/NACL-ISO 500 MG/100 ML RTUPB IV ONE (18:06)
[2018-04-18 18:20] LABS: AMORPHOUS SEDIMENT,URINE TRACE /HPF; APPEARANCE,URINE SLIGHTLY-CLOUDY; BILIRUBIN,URINE NEGATIVE (NEGATIVE); COLOR,URINE YELLOW; GLUCOSE, URINE NEGATIVE (NEGATIVE); KETONES,URINE NEGATIVE (NEGATIVE); LEUKOCYTE ESTERASE,URINE NEGATIVE (NEGATIVE); NITRITE,URINE NEGATIVE (NEGATIVE); PROTEIN,URINE 100 mg/dL (NEGATIVE); URINE SPECIFIC GRAVITY 1.015; UROBILINOGEN,URINE NEGATIVE mg/dL (<2.0)
[2018-04-18 18:21] LABS: HEMATOCRIT 39.2 % (36.0-47.0); HEMOGLOBIN 13.2 g/dL (12.0-15.5); MEAN CORPUSCULAR HEMOGLOBIN 30.1 pg (27.0-33.4); MEAN CORPUSCULAR HGB CONC 33.6 g/dL (32.0-36.0); MEAN CORPUSCULAR VOLUME 90 fl (80-97); PLATELET COUNT 158 10^3/uL (150-450); RED BLOOD COUNT 4.37 10^6/uL (3.72-5.28); RED CELL DISTRIBUTION WIDTH 13.7 % (11.5-14.0); WHITE BLOOD COUNT 6.4 10^3/uL (4.0-10.5)
[2018-04-18 18:32] LABS: URINE AMPHETAMINES SCREEN NEGATIVE; URINE BARBITURATES SCREEN NEGATIVE; URINE BENZODIAZEPINES SCREEN UNCONFIRMED POSITIVE; URINE COCAINE SCREEN NEGATIVE; URINE MARIJUANA (THC) SCREEN UNCONFIRMED POSITIVE; URINE METHADONE SCREEN NEGATIVE; URINE PHENCYCLIDINE SCREEN NEGATIVE
[2018-04-18 18:39] LABS: BLOOD UREA NITROGEN 13 mg/dL (7-20); CALCIUM 9.2 mg/dL (8.4-10.2); GLUCOSE 95 mg/dL (75-110)
[2018-04-18 18:43] LABS: ABSOLUTE LYMPHOCYTES# (MANUAL) 3.1 10^3/uL (0.5-4.7); ABSOLUTE MONOCYTES # (MANUAL) 0.2 10^3/uL (0.1-1.4); ABSOLUTE NEUTROPHILS# (MANUAL) 3.1 10^3/uL (1.7-8.2); BAND NEUTROPHILS % (MANUAL) 1 % (3-5); BASOPHILS % (MANUAL) 0 % (0-2); EOSINOPHILS % (MANUAL) 0 % (0-6); LYMPHOCYTES % (MANUAL) 46 % (13-45); METAMYELOCYTES % (MANUAL) 1 % (0); MONOCYTES % (MANUAL) 3 % (3-13); SEGMENTED NEUTROPHILS % (MAN) 46 % (42-78); TOTAL CELLS COUNTED 100
[2018-04-18 18:44] LABS: BURR CELLS SLIGHT; OVALOCYTES SLIGHT; PLATELET COMMENT ADEQUATE; POIKILOCYTOSIS SLIGHT
[2018-04-18 18:45] LABS: CARBON DIOXIDE 15 mmol/L (22-30); CHLORIDE 106 mmol/L (98-107); SODIUM 141.4 mmol/L (137-145)
[2018-04-18 18:49] LABS: ALCOHOL < 10 mg/dL (NONE DETECTED)
[2018-04-18 18:50] LABS: ANION GAP 20 (5-19)
[2018-04-18] MEDS ORDERED: KETOROLAC TROMETHAMINE INJ/PF 30 MG/1 ML SDV IV ONE (19:54)
--- NOTE | 2018-04-18 19:58 | ER Document Report ---
ED General - General Chief Complaint: Probable Seizure Stated Complaint: POSSIBLE SEIZURE Time Seen by Provider: 04/18/18 18:05 TRAVEL OUTSIDE OF THE [place] IN LAST 30 DAYS: No - HPI Patient complains to provider of: Seizure Notes: Patient coming in for evaluation of a seizure. Patient apparently had a seizure prior to EMS arrival still having was given Versed intranasally transported to ER patient upon her evaluation here is slightly postictal however he is able to answer some simple questions and follow simple commands. Airway looks to be intact however much of the HPI is unobtainable due to the patient's condition. Most of the information obtained initially from the patient's previous visits. No signs of trauma - Related Data Allergies/Adverse Reactions: No Known Allergies Allergy (Verified 03/23/18 16:46) Past Medical History - Social History Smoking Status: Unknown if Ever Smoked Chew tobacco use (# tins/day): No Frequency of alcohol use: None Drug Abuse: None Family History: Reviewed & Not Pertinent Patient has suicidal ideation: No Patient has homicidal ideation: No - Past Medical History Cardiac Medical History: Denies: Hx Coronary Artery Disease, Hx Heart Attack, Hx Hypertension Pulmonary Medical History: Denies: Hx Asthma, Hx Bronchitis, Hx COPD, Hx Pneumonia Neurological Medical History: Reports: Hx Seizures - SEIZURE X 1, 2 YEARS AGO, NO MEDS, NO SEIZURE SINCE. Denies: Hx Cerebrovascular Accident Renal/ Medical History: Denies: Hx Peritoneal Dialysis Musculoskeletal Medical History: Denies Hx Arthritis Past Surgical History: Reports: Hx Orthopedic Surgery - L ACL, Bilat shoulders w /hardware - Immunizations Hx Diphtheria, Pertussis, Tetanus Vaccination: Yes Review of Systems - Review of Systems -: Yes ROS unobtainable due to patient's medical condition - Postictal Physical Exam - Vital signs Vitals: Resp Pulse Ox 17 100 04/18/18 17:55 04/18/18 17:55 Interpretation: Normal - General General appearance: Appears well, Alert - HEENT Head: Normocephalic, Atraumatic Eyes: Normal Conjunctiva: Normal Cornea: Normal Pupils: PERRL Ears: Normal External canal: Normal Tympanic membrane: Normal Sinus: Normal Pharynx: Normal Neck: Normal - Respiratory Respiratory status: No respiratory distress Chest status: Nontender Breath sounds: Normal Chest palpation: Normal - Cardiovascular Rhythm: Regular Heart sounds: Normal auscultation Murmur: No - Abdominal Inspection: Normal Distension: No distension Bowel sounds: Normal Tenderness: Nontender Organomegaly: No organomegaly - Back Back: Normal, Nontender - Extremities General upper extremity: Normal inspection, Nontender, Normal color, Normal ROM , Normal temperature General lower extremity: Normal inspection, Nontender, Normal color, Normal ROM , Normal temperature, Normal weight bearing. No: Anabel's sign - Neurological Neuro grossly intact: Yes Cognition: Normal Orientation: AAOx4 Cici Coma Scale Eye Opening: Spontaneous Cici Coma Scale Verbal: Oriented [place] Coma Scale Motor: Obeys Commands Cici Coma Scale Total: 15 Speech: Normal Motor strength normal: LUE, RUE, LLE, RLE Sensory: Normal - Psychological Associated symptoms: Normal affect, Normal mood - Skin Skin Temperature: Warm Skin Moisture: Dry Skin Color: Normal Course - Re-evaluation Re-evalutation: 04/18/18 23:00 Breakthrough seizure with known seizure disorder and previous neurology evaluation. Now returned to neuro baseline. Labs reviewed. No indication of new or acute process. Patient appears safe for discharge with observation and close outpatient F/U with PCP or neurology. Seizure warnings discussed with patient / family. Catheter. Observation patient back to baseline. Patient has no complaints. Patient was given dose of Keppra here patient was encouraged to continue her medications but states understanding discharged home. - Vital Signs Vital signs: Temp Pulse Resp BP Pulse Ox 16 92/64 L 100 04/18/18 20:18 04/18/18 20:18 04/18/18 18:01 - Laboratory Result Diagrams: 04/18/18 18:00 04/18/18 18:00 Laboratory results interpreted by me: 04/18/18 04/18/18 04/18/18 18:00 18:00 18:00 Band Neutrophils % 1 L Lymphocytes % (Manual) 46 H Metamyelocytes % 1 H Carbon Dioxide 15 L Anion Gap 20 H Urine Protein 100 H Urine Blood MODERATE H Discharge - Discharge Clinical Impression: Seizure Condition: Good Disposition: HOME, SELF-CARE Instructions: Seizure, Known Epileptic ([facility]) Additional Instructions: Follow-up with your primary care physician for further evaluation return to ER symptoms worsen please continue your medications as previously prescribed. Prescriptions: Ibuprofen [Motrin 600 mg Tablet] 600 mg PO Q8HP PRN #21 tablet PRN Reason: Forms: Return to Work Referrals: PETRONA DE LEON MD [Primary Care Provider] - Follow up as needed
[2018-04-18 20:31] VITALS: BP 92/64
== END 2018-04-18 20:35 | disposition home or self-care (01) ==
LOC: ER 17:48
DX: G40.909 Epilepsy, unspecified, not intractable, without status epilepticus (principal)
CPT/HCPCS: 99284; 96365; 36415; 80307 ×2; 84703; 85025; 80048; 81001; J1953

== ENCOUNTER 2018-04-24 11:11 | Emergency (ER) | payer MEDICAID ==
[2018-04-24] MEDS ORDERED: ONDANSETRON HCL INJ/PF 4 MG/2 ML SDV IV ONE (11:23)
[2018-04-24] MEDS ORDERED: LEVETIRACETAM 1500 MG/NACL-ISO 1,500 MG/100 ML RTUPB IV ONE (11:23)
[2018-04-24] MEDS ORDERED: PROCHLORPERAZINE EDISYLATE INJ 10 MG/2 ML VIAL IV ONE (11:23)
--- NOTE | 2018-04-24 11:25 | ER Document Report ---
ED Medical Screen (RME) - General Chief Complaint: Nausea/Vomiting Stated Complaint: NAUSEA TRAVEL OUTSIDE OF THE [place] IN LAST 30 DAYS: No - HPI Notes: 04/24/18 11:24 Nausea vomiting diffuse myalgias states is not taking her Keppra this morning concerned she may have a seizure denies any sick contacts was seen approximately 4 days ago for seizure activity patient denies any drug abuse positive for marijuana last visit - Related Data Allergies/Adverse Reactions: No Known Allergies Allergy (Verified 04/24/18 11:22) Past Medical History - Social History Frequency of alcohol use: Social Drug Abuse: None - Past Medical History Cardiac Medical History: Denies: Hx Coronary Artery Disease, Hx Heart Attack, Hx Hypertension Pulmonary Medical History: Denies: Hx Asthma, Hx Bronchitis, Hx COPD, Hx Pneumonia Neurological Medical History: Reports: Hx Seizures - SEIZURE X 1, 2 YEARS AGO, NO MEDS, NO SEIZURE SINCE. Denies: Hx Cerebrovascular Accident Renal/ Medical History: Denies: Hx Peritoneal Dialysis Musculoskeltal Medical History: Denies Hx Arthritis Past Surgical History: Reports: Hx Orthopedic Surgery - L ACL, Bilat shoulders w /hardware - Immunizations Hx Diphtheria, Pertussis, Tetanus Vaccination: Yes Review of Systems - Review of Systems Gastrointestinal: Nausea, Vomiting Musculoskeletal: Other - myalgia Physical Exam - Vital signs Vitals: Temp Pulse Resp BP Pulse Ox 98.4 F 72 16 128/79 H 100 04/24/18 11:15 04/24/18 11:15 04/24/18 11:15 04/24/18 11:15 04/24/18 11:15 - Respiratory Respiratory status: No respiratory distress Chest status: Nontender Breath sounds: Normal Chest palpation: Normal - Cardiovascular Rhythm: Regular Heart sounds: Normal auscultation Course - Vital Signs Vital signs: Temp Pulse Resp BP Pulse Ox 98.4 F 72 16 128/79 H 100 04/24/18 11:15 04/24/18 11:15 04/24/18 11:15 04/24/18 11:15 04/24/18 11:15 Doctor's Discharge - Discharge Referrals: PETRONA DE LEON MD [Primary Care Provider] - Follow up as needed
--- NOTE | 2018-04-24 11:38 | ER Document Report ---
ED General - General Chief Complaint: Nausea/Vomiting Stated Complaint: NAUSEA Time Seen by Provider: 04/24/18 11:25 Notes: Patient is a 33-year-old female with seizure disorder that presents to the emergency department for chief complaint of nausea, vomiting. Patient states that all day yesterday she has been having multiple episodes of nausea and vomiting, she is not been able to take her antiepileptic medication Keppra because of this. She is worried she may have a seizure. She states that she does feel like this occasionally right before and after seizures and is very concerned she will have another seizure. She denies any fevers, chills, night sweats, lightheadedness, syncope, seizure activity, chest pain, shortness of breath, cough or difficulty breathing, she has some left upper quadrant abdominal discomfort, from the vomiting. And also complains of a sore throat from the vomiting. Denies any sick contacts that she is aware of. No new foods. Past Medical History: Seizure disorder Past Surgical History: Shoulder surgery after fracture, ACL repair Social History: Denies tobacco use, admits to rare alcohol use, and occasional marijuana use Family History: Reviewed and noncontributory for presenting illness Allergies: Reviewed, see documented allergy list. REVIEW OF SYSTEMS: Unless otherwise stated in this report the patient's positive and negative responses for review of systems for constitutional, eyes, ENT, cardiovascular, respiratory, gastrointestinal, neurological, genitourinary, musculoskeletal, and integumentary systems and related systems to the presenting problem are either as stated in the HPI or were not pertinent or were negative for the symptoms and/or complaints related to the presenting medical problem. PHYSICAL EXAMINATION: Vital signs reviewed, nursing noted reviewed. GENERAL: Well-appearing, well-nourished and in no acute distress. HEAD: Atraumatic, normocephalic. EYES: Eyes appear normal, extraocular movements intact, sclera anicteric, conjunctiva are normal. ENT: nares patent, oropharynx clear without exudates. Moist mucous membranes. NECK: Normal range of motion, supple without lymphadenopathy LUNGS: Breath sounds clear to auscultation bilaterally and equal. No wheezes rales or rhonchi. HEART: Regular rate and rhythm without murmurs ABDOMEN: Soft, nontender, normoactive bowel sounds. No rebound, guarding, or rigidity. No masses appreciated. EXTREMITIES: Nontender, good range of motion, no pitting or edema. NEUROLOGICAL: No focal neurological deficits. Moves all extremities spontaneously Motor and sensory grossly intact on exam. PSYCH: Normal mood, normal affect. SKIN: Warm, Dry, normal turgor, no rashes or lesions noted on exposed skin TRAVEL OUTSIDE OF THE [place] IN LAST 30 DAYS: No - Related Data Allergies/Adverse Reactions: No Known Allergies Allergy (Verified 04/24/18 11:22) Past Medical History - Social History Smoking Status: Never Smoker Frequency of alcohol use: Social Drug Abuse: None Family History: Reviewed & Not Pertinent Patient has suicidal ideation: No Patient has homicidal ideation: No - Past Medical History Cardiac Medical History: Denies: Hx Coronary Artery Disease, Hx Heart Attack, Hx Hypertension Pulmonary Medical History: Denies: Hx Asthma, Hx Bronchitis, Hx COPD, Hx Pneumonia Neurological Medical History: Reports: Hx Seizures - SEIZURE X 1, 2 YEARS AGO, NO MEDS, NO SEIZURE SINCE. Denies: Hx Cerebrovascular Accident Renal/ Medical History: Denies: Hx Peritoneal Dialysis Musculoskeletal Medical History: Denies Hx Arthritis Past Surgical History: Reports: Hx Orthopedic Surgery - L ACL, Bilat shoulders w /hardware - Immunizations Hx Diphtheria, Pertussis, Tetanus Vaccination: Yes Physical Exam - Vital signs Vitals: Temp Pulse Resp BP Pulse Ox 98.4 F 72 16 128/79 H 100 04/24/18 11:15 04/24/18 11:15 04/24/18 11:15 04/24/18 11:15 04/24/18 11:15 Course - Re-evaluation Re-evalutation: Patient seen and examined vital signs reviewed. Laboratory data and imaging were ordered as appropriate for the patient's presenting symptoms and complaint, with consideration of any critical or life threatening conditions that may be associated with their obtained history and exam as noted above. Patient was treated with IV Keppra infusion, Zofran, and Phenergan Patient was reevaluated, states that she was overall feeling better but had body aches, she did not want to stay for her results, she did receive the IV Keppra, Zofran and Phenergan, did not await for IV fluids. I discussed with her I would like to review her blood test, prior to discharge, but she persisted that she wanted to be discharged, and that she was feeling better, just wanted to go home and rest. She states she does have Keppra at home. I will give her a prescription for Zofran to take if needed. She is advised to follow-up with her primary care physician. *Note is created using voice recognition software and may contain spelling, syntax or grammatical errors. Laboratory 04/24/18 04/24/18 04/24/18 12:45 12:45 12:45 WBC 3.0 L RBC 3.69 L Hgb 11.2 L Hct 32.2 L MCV 87 MCH 30.3 MCHC 34.7 RDW 13.3 Plt Count 112 L Seg Neutrophils % 58.1 Lymphocytes % 28.8 Monocytes % 11.8 Eosinophils % 0.7 Basophils % 0.6 Absolute Neutrophils 1.8 Absolute Lymphocytes 0.9 Absolute Monocytes 0.4 Absolute Eosinophils 0.0 Absolute Basophils 0.0 Sodium 138.0 Potassium 4.4 Chloride 106 Carbon Dioxide 28 Anion Gap 4 L BUN 10 Creatinine 0.62 Est GFR ( Amer) > 60 Est GFR (Non-Af Amer) > 60 Glucose 83 Calcium 9.0 Total Bilirubin 2.0 H Direct Bilirubin 0.7 H Neonat Total Bilirubin Not Reportable Neonat Direct Bilirubin Not Reportable Neonat Indirect Bili Not Reportable AST 63 H ALT 56 H Alkaline Phosphatase 50 Total Protein 6.9 Albumin 3.7 Lipase 10.1 L Serum HCG, Qual NEGATIVE - Vital Signs Vital signs: Temp Pulse Resp BP Pulse Ox 98.4 F 72 12 116/65 99 04/24/18 11:15 04/24/18 11:15 04/24/18 12:01 04/24/18 12:01 04/24/18 12:01 - Laboratory Result Diagrams: 04/24/18 12:45 04/24/18 12:45 Laboratory results interpreted by me: 04/24/18 04/24/18 12:45 12:45 WBC 3.0 L RBC 3.69 L Hgb 11.2 L Hct 32.2 L Plt Count 112 L Anion Gap 4 L Total Bilirubin 2.0 H Direct Bilirubin 0.7 H AST 63 H ALT 56 H Lipase 10.1 L Discharge - Discharge Clinical Impression: Nausea and vomiting Qualifiers: Vomiting type: unspecified Vomiting Intractability: non-intractable Qualified Code(s): R11.2 - Nausea with vomiting, unspecified Condition: Stable Disposition: HOME, SELF-CARE Instructions: Antinausea Medication ([facility]), Vomiting ([facility]) Additional Instructions: Please return to the emergency department if you have any worsening, or concern of your symptoms. Please return to the emergency department if you develop chest pain, difficulty breathing, severe abdominal pain, or ongoing vomiting. Please follow-up with your primary care physician in 2-3 days and any other recommended physicians. If prescribed, take all medications as directed. If you have any questions or concerns do not hesitate to return the emergency department for evaluation. Please take your Keppra as directed, and continue to do so, with a dose this evening, and take the Zofran if needed for nausea. Prescriptions: Ondansetron [Zofran Odt 4 mg Tablet] 1 tab PO Q8H PRN #15 tab.rapdis PRN Reason: For Nausea/Vomiting Referrals: PETRONA DE ELON MD [Primary Care Provider] - Follow up in 3-5 days
[2018-04-24] MEDS ORDERED: NORMAL SALINE 1000 ML 1,000 ML IV ONE (11:39)
[2018-04-24 12:19] VITALS: BP 116/65
[2018-04-24 12:56] LABS: ABSOLUTE LYMPHOCYTES (AUTO) 0.9 10^3/uL (0.5-4.7); ABSOLUTE MONOCYTES (AUTO) 0.4 10^3/uL (0.1-1.4); ABSOLUTE NEUT (AUTO) 1.8 10^3/uL (1.7-8.2); BASOPHILS % (AUTO) 0.6 % (0-2); EOSINOPHILS % (AUTO) 0.7 % (0-6); HEMATOCRIT 32.2 % (36.0-47.0); HEMOGLOBIN 11.2 g/dL (12.0-15.5); LYMPHOCYTES % (AUTO) 28.8 % (13-45); MEAN CORPUSCULAR HEMOGLOBIN 30.3 pg (27.0-33.4); MEAN CORPUSCULAR HGB CONC 34.7 g/dL (32.0-36.0); MEAN CORPUSCULAR VOLUME 87 fl (80-97); MONOCYTES % (AUTO) 11.8 % (3-13); PLATELET COUNT 112 10^3/uL (150-450); RED BLOOD COUNT 3.69 10^6/uL (3.72-5.28); RED CELL DISTRIBUTION WIDTH 13.3 % (11.5-14.0); SEGMENTED NEUTROPHILS % (AUTO) 58.1 % (42-78); TOTAL CELLS COUNTED % (AUTO) 100 %
[2018-04-24 13:20] LABS: ALANINE AMINOTRANSFERASE 56 U/L (9-52); ALBUMIN 3.7 g/dL (3.5-5.0); ALKALINE PHOSPHATASE 50 U/L (38-126); ASPARTATE AMINO TRANSFERASE 63 U/L (14-36); BILIRUBIN,DIRECT 0.7 mg/dL (0.0-0.4); BLOOD UREA NITROGEN 10 mg/dL (7-20); CARBON DIOXIDE 28 mmol/L (22-30); GLUCOSE 83 mg/dL (75-110); LIPASE 10.1 U/L (23-300); POTASSIUM 4.4 mmol/L (3.6-5.0); TOTAL PROTEIN 6.9 g/dL (6.3-8.2)
[2018-04-24 13:25] LABS: CHLORIDE 106 mmol/L (98-107)
[2018-04-24 13:26] LABS: ANION GAP 4 (5-19)
== END 2018-04-24 15:11 | disposition home or self-care (01) ==
LOC: ER 11:11
DX: R11.2 Nausea with vomiting, unspecified (principal); J02.9 Acute pharyngitis, unspecified; G40.909 Epilepsy, unspecified, not intractable, without status epilepticus; Z79.899 Other long term (current) drug therapy
CPT/HCPCS: 99283; 96375; 96365; 36415; 83690; 84703; 85025; 80053; J0780; J2405; J1953

== ENCOUNTER 2018-08-04 10:16 | Emergency (ER) | payer MEDICAID, OTHER ==
[2018-08-04] MEDS ORDERED: MORPHINE SULFATE 10 MG/ML INJ IV ONE (10:34)
[2018-08-04] MEDS ORDERED: NORMAL SALINE 1000 ML 1,000 ML IV ONE (10:34)
[2018-08-04] MEDS ORDERED: ONDANSETRON HCL INJ/PF 4 MG/2 ML SDV IV ONE (10:35)
--- NOTE | 2018-08-04 10:36 | ER Document Report ---
ED Medical Screen (RME) - General Chief Complaint: Abdominal Pain Stated Complaint: ABDOMINAL PAIN Time Seen by Provider: 08/04/18 10:26 Mode of Arrival: Ambulatory Information source: Patient Notes: This is a 33-year-old female with a history of seizure disorder (Keppra 1500 mg twice daily) who presents to the emergency room with lower pelvic pain since this morning. Patient denies vaginal bleeding or dysuria. She does have an IUD. She denies any fever, chills, nausea or vomiting. She does appear uncomfortable in triage. TRAVEL OUTSIDE OF THE [place] IN LAST 30 DAYS: No - Related Data Allergies/Adverse Reactions: No Known Allergies Allergy (Verified 08/04/18 10:17) Past Medical History - Social History Frequency of alcohol use: Rare Drug Abuse: Marijuana - Past Medical History Cardiac Medical History: Denies: Hx Coronary Artery Disease, Hx Heart Attack, Hx Hypertension Pulmonary Medical History: Denies: Hx Asthma, Hx Bronchitis, Hx COPD, Hx Pneumonia Neurological Medical History: Reports: Hx Seizures - SEIZURE X 1, 2 YEARS AGO, NO MEDS, NO SEIZURE SINCE. Denies: Hx Cerebrovascular Accident Renal/ Medical History: Denies: Hx Peritoneal Dialysis Musculoskeltal Medical History: Denies Hx Arthritis Past Surgical History: Reports: Hx Abdominal Surgery - hernia repair, Hx Orthopedic Surgery - L ACL, Bilat shoulders w/hardware - Immunizations Hx Diphtheria, Pertussis, Tetanus Vaccination: Yes Physical Exam - Vital signs Vitals: Temp Pulse Resp BP Pulse Ox 97.6 F 81 16 113/69 100 08/04/18 10:20 08/04/18 10:20 08/04/18 10:20 08/04/18 10:20 08/04/18 10:20 Course - Vital Signs Vital signs: Temp Pulse Resp BP Pulse Ox 97.6 F 81 16 113/69 100 08/04/18 10:20 08/04/18 10:20 08/04/18 10:20 08/04/18 10:20 08/04/18 10:20
[2018-08-04 11:01] LABS: ABSOLUTE LYMPHOCYTES (AUTO) 2.6 10^3/uL (0.5-4.7); ABSOLUTE MONOCYTES (AUTO) 0.4 10^3/uL (0.1-1.4); ABSOLUTE NEUT (AUTO) 2.6 10^3/uL (1.7-8.2); BASOPHILS % (AUTO) 0.5 % (0-2); EOSINOPHILS % (AUTO) 0.7 % (0-6); HEMATOCRIT 33.4 % (36.0-47.0); HEMOGLOBIN 11.2 g/dL (12.0-15.5); LYMPHOCYTES % (AUTO) 45.9 % (13-45); MEAN CORPUSCULAR HEMOGLOBIN 27.7 pg (27.0-33.4); MEAN CORPUSCULAR HGB CONC 33.4 g/dL (32.0-36.0); MEAN CORPUSCULAR VOLUME 83 fl (80-97); MONOCYTES % (AUTO) 7.6 % (3-13); PLATELET COUNT 150 10^3/uL (150-450); RED BLOOD COUNT 4.04 10^6/uL (3.72-5.28); RED CELL DISTRIBUTION WIDTH 13.9 % (11.5-14.0); SEGMENTED NEUTROPHILS % (AUTO) 45.3 % (42-78); TOTAL CELLS COUNTED % (AUTO) 100 %; WHITE BLOOD COUNT 5.7 10^3/uL (4.0-10.5)
[2018-08-04 11:03] LABS: APPEARANCE,URINE CLOUDY; BILIRUBIN,URINE NEGATIVE (NEGATIVE); COLOR,URINE YELLOW; GLUCOSE, URINE NEGATIVE (NEGATIVE); KETONES,URINE NEGATIVE (NEGATIVE); LEUKOCYTE ESTERASE,URINE LARGE (NEGATIVE); NITRITE,URINE NEGATIVE (NEGATIVE); PROTEIN,URINE NEGATIVE (NEGATIVE); URINE SPECIFIC GRAVITY 1.024; UROBILINOGEN,URINE NEGATIVE mg/dL (<2.0)
[2018-08-04 11:55] LABS: BACTERIA (WET MOUNT) 4+ BACTERIA SEEN; RBCS (WET MOUNT) RARE RBCS SEEN; T.VAGINALIS (WET MOUNT) NO TRICHOMONAS SEEN; WBCS (WET MOUNT) 4+ WBCS SEEN; YEAST (WET MOUNT) NO YEAST SEEN
--- NOTE | 2018-08-04 12:25 | RADIOLOGY REPORT (SQ) ---
EXAM DESCRIPTION: U/S NON OB PEL W/DOPPLER COMPLETED DATE/TIME: 08/04/2018 12:12 pm REASON FOR STUDY: Pelvic pain this morning. Not COMPARISON: None. TECHNIQUE: Dynamic and static grayscale images acquired of the pelvis via transabdominal approach an d recorded on PACS. Additional selected color Doppler and spectral images recorded. LIMITATIONS: Unable to visualize the left adnexa due to bowel gas shadowing FINDINGS: UTERUS: Contour normal. Uterus is 9 x 5 x 4 cm in size with a 1.7 cm fibroid along the ve ntral uterine body ENDOMETRIAL STRIPE: No focal or generalized thickening. No masses. Endometrial stripe is 12 mm in th ickness. Small amount of fluid in the endometrial cavity. The IUD is in the lower uterine segment/cervix new. CERVIX: No nabothian cysts. Closed, 3.5 cm in length. RIGHT OVARY AND DOPPLER: Normal size, a 4.2 x 3.1 x 2.5 cm in size with a 3 cm simple cyst. No worri some masses. Normal arterial vascular flow without evidence for torsion. LEFT OVARY AND DOPPLER: Not visualized due to limited acoustic window, bowel gas shadowing. FREE FLUID: Small amount of fluid in the pelvic cul-de-sac and left adnexa. OTHER: No other significant finding. IMPRESSION: IUD in the lower uterine segment/cervix Small amount of pelvic cul-de-sac fluid, left adnexal fluid. Nonvisualization left ovary TECHNICAL DOCUMENTATION: JOB ID: [id number] [employer]- All Rights Reserved Reading location - IP/workstation name: [email or web address]
[2018-08-04 12:47] LABS: ALANINE AMINOTRANSFERASE 36 U/L (9-52); ALBUMIN 3.5 g/dL (3.5-5.0); ALKALINE PHOSPHATASE 56 U/L (38-126); ASPARTATE AMINO TRANSFERASE 31 U/L (14-36); BILIRUBIN,DIRECT 0.1 mg/dL (0.0-0.4); BILIRUBIN,TOTAL 0.3 mg/dL (0.2-1.3); BLOOD UREA NITROGEN 13 mg/dL (7-20); GLUCOSE 91 mg/dL (75-110); POTASSIUM 4.3 mmol/L (3.6-5.0); TOTAL PROTEIN 6.2 g/dL (6.3-8.2)
[2018-08-04 12:52] LABS: CARBON DIOXIDE 25 mmol/L (22-30); CHLORIDE 107 mmol/L (98-107)
[2018-08-04 12:56] LABS: ANION GAP 3 (5-19)
[2018-08-04 13:18] LABS: CHLAM PCR NOT DETECTED (NOT DETECT); GON PCR NOT DETECTED (NOT DETECT)
[2018-08-04] MEDS ORDERED: CEFTRIAXONE INJ 1000 MG VIAL IV ONE (14:24)
--- NOTE | 2018-08-04 15:03 | ER Document Report ---
ED GI/ - General Chief Complaint: Abdominal Pain Stated Complaint: ABDOMINAL PAIN Time Seen by Provider: 08/04/18 10:26 Mode of Arrival: Ambulatory Notes: Patient has pain in the mid suprapubic region of her abdomen which began this morning. She says it is very severe pain, sharp pinching and feels like labor pain. Patient is not . She has an IUD called a ParaGard which she has had in for 9 years without any problems. Her last menstrual cycle was a couple of days after Rita. Denies any nausea or vomiting. Denies fever. She has some urinary burning, but no other UTI symptoms. Pain has improved somewhat since she received pain medications (morphine) here. She says it hurts when she moves or sits down. Patient has had a hernia in the right groin removed. Patient is on Keppra for seizure disorder that started in 2014. He TRAVEL OUTSIDE OF THE [place] IN LAST 30 DAYS: No - Related Data Allergies/Adverse Reactions: No Known Allergies Allergy (Verified 08/04/18 10:17) Past Medical History - General Information source: Patient - Social History Smoking Status: Never Smoker Frequency of alcohol use: Rare Drug Abuse: Marijuana Family History: Reviewed & Not Pertinent Patient has suicidal ideation: No Patient has homicidal ideation: No Neurological Medical History: Reports: Hx Seizures - SEIZURE X 1, 2 YEARS AGO, NO MEDS, NO SEIZURE SINCE Musculoskeletal Medical History: Denies Hx Arthritis Past Surgical History: Reports: Hx Abdominal Surgery - hernia repair, Hx Orthopedic Surgery - L ACL, Bilat shoulders w/hardware - Immunizations Hx Diphtheria, Pertussis, Tetanus Vaccination: Yes Review of Systems - Review of Systems Notes: REVIEW OF SYSTEMS: CONSTITUTIONAL : Denies fever. EENT: Denies eye, ear, nose or mouth or throat pain or other symptoms. CARDIOVASCULAR: Denies chest pain. RESPIRATORY: Denies cough, chest congestion, or shortness of breath. GASTROINTESTINAL: Abdominal pain, see HPI. Denies nausea, vomiting, or diarrhea. GENITOURINARY: Patient says he had some burning with urination but denies any other UTI symptoms. No blood in the urine. No history of kidney stones. MUSCULOSKELETAL: Denies back or neck pain. Denies joint pain or swelling. SKIN: Denies rash or skin lesions. NEUROLOGICAL: Denies LOC or altered mental status. Denies headache. Denies se nsory loss or motor deficits. ALL OTHER SYSTEMS REVIEWED AND NEGATIVE. Physical Exam - Vital signs Vitals: Temp Pulse Resp BP Pulse Ox 97.6 F 81 16 113/69 100 08/04/18 10:20 08/04/18 10:20 08/04/18 10:20 08/04/18 10:20 08/04/18 10:20 Interpretation: Normal Notes: PHYSICAL EXAMINATION: GENERAL: Well-appearing, in no acute distress. Says her pain is a lot better since she received pain medications in triage. HEAD: Atraumatic, normocephalic. EYES: Pupils equal round and reactive to light, extraocular movements intact. ENT: oropharynx clear without exudates. Moist mucous membranes. NECK: Normal range of motion, supple. LUNGS: Breath sounds clear and equal bilaterally. HEART: Regular rate and rhythm without murmurs. ABDOMEN: Soft, nontender upper two thirds of the abdomen. Tender in the suprapubic region. No guarding or rebound. No masses. BACK: No tenderness throughout entire back. EXTREMITIES: Normal range of motion without pain. NEUROLOGICAL: Normal speech, normal gait. Normal sensory, motor, and reflex exams. Awake, alert, and oriented x3. Cranial nerves normal. PSYCH: Normal mood, normal affect. SKIN: Warm, dry, no rashes. - Genitourinary External exam: Normal Speculum exam: Normal, Cervix closed. No: Vaginal discharge, Lesions Vaginal bleeding: None Bimanuel exam: Cervical motion tender, Adnexal tenderness - Bilateral. No: Adnexal mass, Uterus enlarged Course - Re-evaluation Re-evalutation: 08/04/18 19:49 Patient's labs look like she may have a UTI. Patient's labs results are negative for chlamydia and gonorrhea. I am giving her a dose of Rocephin and putting her on Macrobid twice daily for 6 days. - Vital Signs Vital signs: Temp Pulse Resp BP Pulse Ox 98.1 F 56 L 16 114/60 100 08/04/18 15:23 08/04/18 15:23 08/04/18 15:23 08/04/18 15:23 08/04/18 15:23 - Laboratory Result Diagrams: 08/04/18 10:44 08/04/18 12:20 Laboratory results interpreted by me: 08/04/18 08/04/18 08/04/18 10:44 10:44 12:20 Hgb 11.2 L Hct 33.4 L Lymphocytes % 45.9 H Sodium 135.0 L Anion Gap 3 L Total Protein 6.2 L Ur Leukocyte Esterase LARGE H - Diagnostic Test Radiology reviewed: Image reviewed, Reports reviewed - Ultrasound did not visualize the left ovary. The right ovary is unremarkable. Good blood flow. S ome small amount of fluid in the cul-de-sac. Discharge - Discharge Clinical Impression: Pelvic infection, Bladder infection Condition: Stable Disposition: HOME, SELF-CARE Additional Instructions: PELVIC PAIN: There are many causes of pain in the pelvic area. The cause could be the tubes, ovaries, uterus, intestines, appendix, pelvic muscles and connective tissue, or the urinary tract. The cause of your pelvic pain is not clear. However, it seems safe to treat you outside the hospital. If the pain sounds like a temporary problem, we sometimes wait to see if it goes away. Other patients may need additional tests, such as pelvic ultrasound or cultures. Conditions may change. Call us or come back for reexamination if any problems occur, such as: (1) Pain that becomes more severe, steady, or becomes concentrated in one specific area. Also, pain that is more severe with movement or coughing. (2) Vomiting that persists or becomes more frequent. (3) Blood in the vomitus, urine, or bowel movements. Blood in the stool may have a tarry or black appearance. (4) Shaking chills or fever greater than 100 degrees. (5) The abdomen becomes more distended or swollen. (6) Bowel movements cease. (7) Heavy vaginal bleeding. PELVIC INFLAMMATORY DISEASE: You have been diagnosed as having pelvic inflammatory disease (PID). This is an infection of the fallopian tubes and surrounding areas of the pelvis. Symptoms are usually pelvic pain and discharge. The infection can do permanent damage to the tubes and ovaries. It should be taken very seriously. Treatment is antibiotics, which may be given by vein or by injection if the infection seems serious. It's important that you receive all recommended medication. Condoms help prevent spread of this infection to others. Because this infection is spread sexually, it's important that your sexual partner be checked before resuming sexual relations. If a culture shows gonorrhea or chlamydia organisms, the law requires that this be reported to the health department. Call the doctor or return at once if you develop increasing fever, rash, severe pelvic pain, vaginal bleeding (other than your period), or problems with your bladder or bowels. ANTIBIOTIC THERAPY: You have been given an antibiotic prescription. It's important that you take all the medication, unless instructed otherwise by your physician. Failure to complete the entire course can result in relapse of your condition. Common side effects of antibiotics include nausea, intestinal cramping, or diarrhea. Women may develop vaginal yeast infections, and babies can get yeast (thrush) in the mouth following the use of antibiotics. Contact your physician if you develop significant side effects from this medication. Allergy to this antibiotic can result in hives, wheezing, faintness, or itching. If symptoms of allergy occur, stop the medication and call the doctor. CEPHALOSPORINS: An antibiotic of the cephalosporin class has been prescribed. This type of antibiotic covers a wide variety of infections, including those of the skin, lungs, middle ear, and urinary tract. This antibiotic is somewhat similar to the penicillin family. In rare case s, a person who is allergic to penicillin will also be allergic to this medication. If you have had a severe allergic reaction to penicillin, and have not taken this antibiotic since that time, notify your doctor. Antibiotics which cover many germs ("broad spectrum" antibiotics) are more likely to cause diarrhea or "yeast" infections. Women prone to vaginal yeast problems may suffer an attack after taking this antibiotic. In infants, oral thrush (white spots "stuck" on the cheek) or yeast diaper rash may result. See your doctor if these problems occur. Call the doctor at once if you develop hives, itching, shortness of breath, or lightheadedness. Rocephin You have been given an injection of an antibiotic called Rocephin (ceftriaxone). Sometimes the injection must be combined with antibiotic pills. For some infections, such as an uncomplicated ear infection, Rocephin provides all the antibiotic that's needed. The antibiotic will be in your body for about two days. For serious infections, we usually repeat doses of Rocephin daily. Side effects are very unusual following a shot. Women may develop vaginal yeast infections, and babies can get yeast (thrush) in the mouth following the use of antibiotics. Contact your physician if you have symptoms with this medication. Allergy to this antibiotic can result in hives, wheezing, faintness, or itching. If symptoms of allergy occur, call the doctor at once. URINARY TRACT INFECTION: Your evaluation indicates that you have a urinary tract infection. This is due to germs growing in the bladder. This is a common problem. This infection usually responds quickly to antibiotics. Your antibiotic should be taken exactly as prescribed. Drink plenty of fluids -- three to four quarts a day. Occasionally, a bladder anesthetic will be prescribed to help stop the feeling of urgency until the antibiotic has a chance to clear the infection. This may cause your urine to be dark orange. Certain urine infections require a culture. If the doctor obtained a culture, the results will be back in two days. You should call to see if a change in treatment is needed. A repeat urinalysis after you finish treatment is often recommended. The [facility] will let you know if further testing is required. Call the doctor if you develop fever, chills, flank pain, inability to urinate, or blood in the urine. ANTIBIOTIC THERAPY: You have been given an antibiotic prescription. It's important that you take all the medication, unless instructed otherwise by your physician. Failure to complete the entire course can result in relapse of your condition. Common side effects of antibiotics include nausea, intestinal cramping, or diarrhea. Women may develop vaginal yeast infections, and babies can get yeast (thrush) in the mouth following the use of antibiotics. Contact your physician if you develop significant side effects from this medication. Allergy to this antibiotic can result in hives, wheezing, faintness, or it katelynn. If symptoms of allergy occur, stop the medication and call the doctor. NITROFURANTOIN (MACRODANTIN, MACROBID): You have received a prescription for nitrofurantoin (Macrodantin). This an tibiotic is used for urinary tract infections. Women who are or nursing should notify the physician before taking this medicine. If you have ever had a problem caused by this medication in the past, be sure the physician is aware of it. Common side effects of this medicine include nausea, vomiting, or decreased appetite. Notify your physician if these side effects become severe. Immediately stop this medicine and call the physician if you develop cough, shortness of breath, chest pain, weakness, jaundice (yellow color of the skin and whites of the eyes), or a skin rash. Ibuprofen Ibuprofen is an excellent, safe drug for pain control. In addition, it has potent antiinflammatory effects which are beneficial, especially in the treatment of injuries, arthritis, or tendonitis. It's best to take ibuprofen with food. Persons with ulcer disease or allergy to aspirin should notify their physician of this before taking ibuprofen. Take the medication exactly as prescribed. Don't take additional doses unless instructed to do so by your doctor. If you develop wheezing, shortness of breath, hives, faintness, stomach pain, vomiting, or dark black stools, return for re-evaluation at once. USE OF ACETAMINOPHEN (Tylenol): Acetaminophen may be taken for pain relief or fever control. It's much safer than aspirin, offering a wider range of "safe" dosages. It is safe during . Some brand names are Tylenol, Panadol, Datril, Anacin 3, Tempra, and Liquiprin. Acetaminophen can be repeated every four hours. The following are maximum recommended dosages: WEIGHT Dose Drops Elixir Chewable(80mg) (LBS.) drprs=droppers tsp=teaspoon >89 pounds or adults 650 mg to 900 mg Acetaminophen can be repeated every four hours. Maximum dose not to exceed 4000 mg a day. These maximum recommended dosages are slightly higher than the dosages wri tten on the product container, but these dosages are very safe and below the toxic dosage for acetaminophen. FOLLOW-UP CARE: If you have been referred to a physician for follow-up care, call the [facility] office for an appointment as you were instructed or within the next two days. If you experience worsening or a significant change in your symptoms, notify the physician immediately or return to the Emergency Department at any time for re-evaluation. If your symptoms worsen, in particular if you develop fevers, return for us to reevaluate your symptoms and condition. Prescriptions: Fluconazole [Diflucan] 150 mg PO ONCE PRN #1 tablet PRN Reason: Nitrofurantoin/Nitrofuran Mac [Macrobid 100 mg Capsule] 1 tab PO BID #20 capsule Referrals: [facility] [[facility]] - Follow up as needed
[2018-08-04 15:49] VITALS: BP 114/60
== END 2018-08-04 15:52 | disposition home or self-care (01) ==
LOC: ER 10:16
DX: N73.9 Female pelvic inflammatory disease, unspecified (principal); N30.90 Cystitis, unspecified without hematuria; G40.909 Epilepsy, unspecified, not intractable, without status epilepticus; Z79.899 Other long term (current) drug therapy; Z97.5 Presence of (intrauterine) contraceptive device
CPT/HCPCS: 99284; 96361; 96375; 96365; 36415; 87086; 87210; 85025; 81025; 80053; 81001; 87491; 87591; 76856; 93976; J2270; J0696; J2405; J7030

== ENCOUNTER 2018-08-14 19:37 | Emergency (ER) | payer OTHER ==
[2018-08-14] MEDS ORDERED: LEVETIRACETAM 1000 MG/NACL-ISO 1,000 MG/100 ML RTUPB IV ONE (19:50)
[2018-08-14] MEDS ORDERED: ONDANSETRON HCL INJ/PF 4 MG/2 ML SDV IV ONE (19:50)
[2018-08-14] MEDS ORDERED: NORMAL SALINE 1000 ML 1,000 ML IV ONE (19:51)
--- NOTE | 2018-08-14 19:53 | ER Document Report ---
ED Medical Screen (RME) - General Chief Complaint: Nausea/Vomiting Stated Complaint: VOMITING Time Seen by Provider: 08/14/18 19:47 Primary Care Provider: AGATHA LEDBETTER [Primary Care Provider] - Follow up as needed Notes: 33-year-old female with chief complaint of vomiting multiple times today and unable to keep her evening Keppra down. She has had some loose stools today as well. Reports general left sided abdominal pain. Denies fever. She is also currently on her menstrual cycle. Last seizure was 2 weeks ago, takes 1000 mg of Keppra twice a day. States last time she was like this (unable to keep her medication down) she had a seizure. TRAVEL OUTSIDE OF THE [place] IN LAST 30 DAYS: No - Related Data Allergies/Adverse Reactions: No Known Allergies Allergy (Verified 08/04/18 10:17) Past Medical History - Past Medical History Cardiac Medical History: Denies: Hx Coronary Artery Disease, Hx Heart Attack, Hx Hypertension Pulmonary Medical History: Denies: Hx Asthma, Hx Bronchitis, Hx COPD, Hx Pneumonia Neurological Medical History: Reports: Hx Seizures - SEIZURE X 1, 2 YEARS AGO, NO MEDS, NO SEIZURE SINCE. Denies: Hx Cerebrovascular Accident Renal/ Medical History: Denies: Hx Peritoneal Dialysis Musculoskeltal Medical History: Denies Hx Arthritis Past Surgical History: Reports: Hx Abdominal Surgery - hernia repair, Hx Orthopedic Surgery - L ACL, Bilat shoulders w/hardware - Immunizations Hx Diphtheria, Pertussis, Tetanus Vaccination: Yes Physical Exam - General General appearance: Anxious In distress: None - Abdominal Tenderness: Tender - mild generalized left sided abdominal pain Course - Re-evaluation Re-evalutation: Patient is anxious in appearance but not toxic, she is not tachycardic, she will be given her evening Keppra dose through the IV with rehydration and nausea medication. Pending workup. I have greeted and performed a rapid initial assessment of this patient. A comprehensive ED assessment and evaluation of the patient, analysis of test results and completion of the medical decision making process will be conducted by additional ED providers. Doctor's Discharge - Discharge Referrals: KHLOE,AGATHA [Primary Care Provider] - Follow up as needed
[2018-08-14] MEDS ORDERED: KETOROLAC TROMETHAMINE INJ/PF 30 MG/1 ML SDV IV ONE (20:46)
[2018-08-14 20:47] LABS: ABSOLUTE LYMPHOCYTES (AUTO) 1.3 10^3/uL (0.5-4.7); ABSOLUTE MONOCYTES (AUTO) 0.4 10^3/uL (0.1-1.4); ABSOLUTE NEUT (AUTO) 3.6 10^3/uL (1.7-8.2); BASOPHILS % (AUTO) 0.7 % (0-2); EOSINOPHILS % (AUTO) 0.4 % (0-6); HEMATOCRIT 32.6 % (36.0-47.0); LYMPHOCYTES % (AUTO) 23.4 % (13-45); MEAN CORPUSCULAR HEMOGLOBIN 27.4 pg (27.0-33.4); MEAN CORPUSCULAR HGB CONC 33.7 g/dL (32.0-36.0); MEAN CORPUSCULAR VOLUME 82 fl (80-97); PLATELET COUNT 180 10^3/uL (150-450); SEGMENTED NEUTROPHILS % (AUTO) 67.5 % (42-78); TOTAL CELLS COUNTED % (AUTO) 100 %; WHITE BLOOD COUNT 5.4 10^3/uL (4.0-10.5)
[2018-08-14 21:07] LABS: ALANINE AMINOTRANSFERASE 43 U/L (9-52); ALBUMIN 4.2 g/dL (3.5-5.0); ALKALINE PHOSPHATASE 71 U/L (38-126); ASPARTATE AMINO TRANSFERASE 44 U/L (14-36); BILIRUBIN,DIRECT 0.1 mg/dL (0.0-0.4); BILIRUBIN,TOTAL 0.5 mg/dL (0.2-1.3); BLOOD UREA NITROGEN 13 mg/dL (7-20); CALCIUM 9.4 mg/dL (8.4-10.2); GLUCOSE 95 mg/dL (75-110); LIPASE 37.9 U/L (23-300); POTASSIUM 4.6 mmol/L (3.6-5.0); TOTAL PROTEIN 7.1 g/dL (6.3-8.2)
[2018-08-14 21:10] VITALS: BP 112/63
[2018-08-14 21:12] LABS: CARBON DIOXIDE 25 mmol/L (22-30); CHLORIDE 108 mmol/L (98-107); SODIUM 136.1 mmol/L (137-145)
[2018-08-14 21:17] LABS: ANION GAP 3 (5-19)
[2018-08-14] MEDS ORDERED: ONDANSETRON ODT 4 MG TAB (6 TAB/ER DISP) PO PRN (21:53)
--- NOTE | 2018-08-14 21:55 | ER Document Report ---
ED General - General Chief Complaint: Nausea/Vomiting Stated Complaint: VOMITING Time Seen by Provider: 08/14/18 19:47 Primary Care Provider: KHLOE,AGATHA [Primary Care Provider] - Follow up as needed Notes: 33-year-old female with chief complaint of vomiting multiple times today and unable to keep her evening Keppra down. She has had some loose stools today as well. Reports general left sided abdominal pain. Denies fever. She is also currently on her menstrual cycle. Last seizure was 2 weeks ago, takes 1000 mg of Keppra twice a day. States last time she was like this (unable to keep her medication down) she had a seizure. TRAVEL OUTSIDE OF THE [place] IN LAST 30 DAYS: No - Related Data Allergies/Adverse Reactions: No Known Allergies Allergy (Verified 08/04/18 10:17) Past Medical History - General Information source: Patient - Social History Smoking Status: Never Smoker Chew tobacco use (# tins/day): No Frequency of alcohol use: None Drug Abuse: None Lives with: Family Family History: Reviewed & Not Pertinent Patient has suicidal ideation: No Patient has homicidal ideation: No - Past Medical History Cardiac Medical History: Denies: Hx Coronary Artery Disease, Hx Heart Attack, Hx Hypertension Pulmonary Medical History: Denies: Hx Asthma, Hx Bronchitis, Hx COPD, Hx Pneumonia Neurological Medical History: Reports: Hx Seizures - SEIZURE X 1, 2 YEARS AGO, NO MEDS, NO SEIZURE SINCE. Denies: Hx Cerebrovascular Accident Renal/ Medical History: Denies: Hx Peritoneal Dialysis Musculoskeletal Medical History: Denies Hx Arthritis Past Surgical History: Reports: Hx Abdominal Surgery - hernia repair, Hx Orthopedic Surgery - L ACL, Bilat shoulders w/hardware - Immunizations Immunizations up to date: Yes Hx Diphtheria, Pertussis, Tetanus Vaccination: Yes Review of Systems - Review of Systems Constitutional: No symptoms reported EENT: No symptoms reported Cardiovascular: No symptoms reported Respiratory: No symptoms reported Gastrointestinal: See HPI Genitourinary: No symptoms reported Female Genitourinary: No symptoms reported Musculoskeletal: No symptoms reported Skin: No symptoms reported Hematologic/Lymphatic: No symptoms reported Neurological/Psychological: See HPI Physical Exam - Vital signs Vitals: Resp 16 08/14/18 19:48 - Notes Notes: GENERAL: Alert, talks rapidly, appears anxious HEAD: Normocephalic, atraumatic. EYES: Pupils equal, round, and reactive to light. Extraocular movements intact. ENT: Oral mucosa moist, tongue midline. Oropharynx unremarkable. Airway patent. Nares patent, no nasal septal hematoma, TM's intact. NECK: Full range of motion. Supple. Trachea midline. LUNGS: Clear to auscultation bilaterally, no wheezes, rales, or rhonchi. No resp iratory distress. HEART: Regular rate and rhythm. No murmur ABDOMEN: Soft, non-tender. Non-distended. Bowel sounds present in all 4 quadrants. GENITOURINARY: Deferred EXTREMITIES: Moves all 4 extremities spontaneously. No edema, normal radial and dorsalis pedis pulses bilaterally. No cyanosis. BACK: no cervical, thoracic, lumbar midline tenderness. No saddle anesthesia, normal distal neurovascular exam. NEUROLOGICAL: Alert and oriented x3. Normal speech. [cranial nerves II through XII grossly intact]. PSYCH: Anxious and speaking rapidly SKIN: Warm, dry, normal turgor. No rashes or lesions noted. Course - Re-evaluation Re-evalutation: Patient was initially very anxious in appearance, however her abdomen is benign and unremarkable, she is very well-appearing otherwise, vital signs are unremarkable. CBC does not show leukocytosis or concerning abnormality, chemistry nonspecific. HCG is negative. Patient was given IV fluids, Zofran, Toradol, Keppra dose for the evening through her IV. Afterwards patient tolerated p.o., family came up to me and asked if she could leave. I reevaluated patient, she is smiling, well-appearing, asking to leave. Requested urine, patient states she would rather leave, denies dysuria, she has no fever, she has no flank pain. Could be viral process, no other concerning findings at this time. Patient was discharged on request at this time. Discussed home treatment, follow-up, and return precautions. Patient states understanding and agreement. - Vital Signs Vital signs: Temp Pulse Resp BP Pulse Ox 97.9 F 84 16 112/63 99 08/14/18 19:52 08/14/18 19:52 08/14/18 19:52 08/14/18 19:52 08/14/18 19:52 - Laboratory Result Diagrams: 08/14/18 20:23 08/14/18 20:23 Laboratory results interpreted by me: 08/14/18 08/14/18 20:23 20:23 Hgb 11.0 L Hct 32.6 L Sodium 136.1 L Chloride 108 H Anion Gap 3 L Creatinine 0.51 L AST 44 H Discharge - Discharge Clinical Impression: Vomiting and diarrhea Abdominal pain Qualifiers: Abdominal location: generalized Qualified Code(s): R10.84 - Generalized abdominal pain Condition: Stable Disposition: HOME, SELF-CARE Additional Instructions: Your workup to this point is reassuring. This is most likely viral and should resolve with time. Take home medications, take Zofran additionally, drink plenty of fluids, start with bland food, rest. Follow-up with primary care. Return if you worsen including uncontrolled vomiting, developing fever, worse abdominal pain, or any other concerning or worsening symptoms. Prescriptions: Ondansetron [Zofran Odt 4 mg Tablet] 1 - 2 tab PO Q4H PRN #20 tab.rapdis PRN Reason: For Nausea/Vomiting Forms: Return to Work Referrals: [facility] [[facility]] - Follow up as needed
== END 2018-08-14 22:09 | disposition home or self-care (01) ==
LOC: ER 19:37
DX: R11.2 Nausea with vomiting, unspecified (principal); G40.909 Epilepsy, unspecified, not intractable, without status epilepticus; R10.84 Generalized abdominal pain; R19.7 Diarrhea, unspecified
CPT/HCPCS: 99284; 96374; 36415; 83690; 84703; 85025; 80053; J1885; J2405; J7030; J1953

== ENCOUNTER 2018-09-20 09:27 | Emergency (ER) | payer OTHER ==
[2018-09-20 09:37] VITALS: BP 119/78
== END 2018-09-20 11:33 | disposition left against medical advice (07) ==
LOC: ER 09:27
DX: Z53.21 Procedure and treatment not carried out due to patient leaving prior to being seen by health care provider (principal)

== ENCOUNTER 2018-10-26 15:00 | Emergency (ER) | payer OTHER ==
[2018-10-26] MEDS ORDERED: ONDANSETRON HCL INJ/PF 4 MG/2 ML SDV IV ONE (15:15)
[2018-10-26] MEDS ORDERED: LEVETIRACETAM 500 MG/NACL-ISO 500 MG/100 ML RTUPB IV ONE (15:15)
--- NOTE | 2018-10-26 15:18 | ER Document Report ---
ED Medical Screen (RME) - General Chief Complaint: Seizure Stated Complaint: POSSIBLE SEIZURE Time Seen by Provider: 10/26/18 15:09 Primary Care Provider: KHLOE,AGATHA [Primary Care Provider] - Follow up as needed TRAVEL OUTSIDE OF THE [place] IN LAST 30 DAYS: No - HPI Notes: 10/26/18 15:16 Patient is a 33-year-old female with a history of seizure disorder and on Keppra who presents the emergency department complaining of having 2 seizures this morning with the last one prior to arrival. Patient states that these were unwitnessed. Patient states that she is lying in her bed when she then woke up and she had blood on her shirt and noticed that the inside of her cheek was bit. Patient states that she then had another seizure when she was in her bathroom because she woke up on the floor in the left side of her face hurts. Patient has been having nausea and vomiting since then and is actively vomiting in the pit waiting room. Patient otherwise has a headache. No other concerns or complaints. Denies fever, neck pain, URI, CP, SOB, or rash. I have treated and performed a rapid initial assessment of this patient. A comprehensive ED assessment and evaluation of the patient, analysis of test results and completion of medical decision making process will be conducted by additional ED providers. PHYSICAL EXAMINATION: GENERAL: Well-appearing, well-nourished and in no acute distress. A&Ox4. Answers questions appropriately. LUNGS: Breath sounds clear to auscultation bilaterally and equal. No wheezes rales or rhonchi. HEART: Regular rate and rhythm without murmurs, rubs, gallops. Extremities: No cyanosis, clubbing, or edema b/l. Cranial nerves grossly intact. NIH 0. GCS 15. NEUROLOGICAL: Normal speech, normal gait. PSYCH: Normal mood, normal affect. - Related Data Allergies/Adverse Reactions: No Known Allergies Allergy (Verified 10/26/18 15:00) Past Medical History - Social History Chew tobacco use (# tins/day): No Frequency of alcohol use: Occasional Drug Abuse: None - Past Medical History Cardiac Medical History: Denies: Hx Coronary Artery Disease, Hx Heart Attack, Hx Hypertension Pulmonary Medical History: Denies: Hx Asthma, Hx Bronchitis, Hx COPD, Hx Pneumonia Neurological Medical History: Reports: Hx Seizures - SEIZURE X 1, 2 YEARS AGO, NO MEDS, NO SEIZURE SINCE. Denies: Hx Cerebrovascular Accident Renal/ Medical History: Denies: Hx Peritoneal Dialysis Musculoskeltal Medical History: Denies Hx Arthritis Past Surgical History: Reports: Hx Abdominal Surgery - hernia repair, Hx Orthopedic Surgery - L ACL, Bilat shoulders w/hardware - Immunizations Immunizations up to date: Yes Hx Diphtheria, Pertussis, Tetanus Vaccination: Yes Physical Exam - Vital signs Vitals: Temp Pulse Resp BP Pulse Ox 98.2 F 81 18 121/87 H 98 10/26/18 15:02 10/26/18 15:02 10/26/18 15:02 10/26/18 15:02 10/26/18 15:02 Course - Vital Signs Vital signs: Temp Pulse Resp BP Pulse Ox 98.2 F 81 18 121/87 H 98 10/26/18 15:02 10/26/18 15:02 10/26/18 15:02 10/26/18 15:02 10/26/18 15:02 Doctor's Discharge - Discharge [facility]errals: [facility] [[facility] - Follow up as needed
[2018-10-26] MEDS ORDERED: ONDANSETRON HCL INJ/PF 4 MG/2 ML SDV ONE (16:25)
[2018-10-26 16:48] LABS: ABSOLUTE LYMPHOCYTES (AUTO) 1.1 10^3/uL (0.5-4.7); ABSOLUTE MONOCYTES (AUTO) 0.4 10^3/uL (0.1-1.4); ABSOLUTE NEUT (AUTO) 4.7 10^3/uL (1.7-8.2); BASOPHILS % (AUTO) 0.2 % (0-2); HEMATOCRIT 34.2 % (36.0-47.0); HEMOGLOBIN 11.3 g/dL (12.0-15.5); LYMPHOCYTES % (AUTO) 17.9 % (13-45); MEAN CORPUSCULAR HEMOGLOBIN 26.2 pg (27.0-33.4); MEAN CORPUSCULAR HGB CONC 33.1 g/dL (32.0-36.0); MEAN CORPUSCULAR VOLUME 79 fl (80-97); MONOCYTES % (AUTO) 6.9 % (3-13); PLATELET COUNT 173 10^3/uL (150-450); RED BLOOD COUNT 4.33 10^6/uL (3.72-5.28); RED CELL DISTRIBUTION WIDTH 14.2 % (11.5-14.0); TOTAL CELLS COUNTED % (AUTO) 100 %; WHITE BLOOD COUNT 6.3 10^3/uL (4.0-10.5)
[2018-10-26 16:55] LABS: APPEARANCE,URINE CLOUDY; BILIRUBIN,URINE NEGATIVE (NEGATIVE); COLOR,URINE YELLOW; GLUCOSE, URINE NEGATIVE (NEGATIVE); KETONES,URINE NEGATIVE (NEGATIVE); LEUKOCYTE ESTERASE,URINE NEGATIVE (NEGATIVE); NITRITE,URINE NEGATIVE (NEGATIVE); PROTEIN,URINE NEGATIVE (NEGATIVE); URINE SPECIFIC GRAVITY 1.017; UROBILINOGEN,URINE NEGATIVE mg/dL (<2.0)
[2018-10-26] MEDS: NORMAL SALINE 1000 ML 1,000 ML IV PRN ×2 (16:56→18:05)
[2018-10-26 17:08] LABS: ALANINE AMINOTRANSFERASE 31 U/L (9-52); ALBUMIN 4.4 g/dL (3.5-5.0); ALKALINE PHOSPHATASE 76 U/L (38-126); ANION GAP 7 (5-19); ASPARTATE AMINO TRANSFERASE 38 U/L (14-36); BILIRUBIN,DIRECT 0.2 mg/dL (0.0-0.4); BILIRUBIN,TOTAL 0.9 mg/dL (0.2-1.3); BLOOD UREA NITROGEN 11 mg/dL (7-20); CARBON DIOXIDE 25 mmol/L (22-30); CHLORIDE 106 mmol/L (98-107); GLUCOSE 93 mg/dL (75-110); POTASSIUM 4.2 mmol/L (3.6-5.0); SODIUM 138.3 mmol/L (137-145)
[2018-10-26] MEDS ORDERED: ACETAMINOPHEN 325 MG TABLET PO ONE (17:42)
--- NOTE | 2018-10-26 17:46 | RADIOLOGY REPORT (SQ) ---
EXAM DESCRIPTION: CT FACIAL AREA WITHOUT COMPLETED DATE/TIME: 10/26/2018 5:07 pm REASON FOR STUDY: left zygomatic pain s/p seizure/fall COMPARISON: None. TECHNIQUE: Noncontrasted images through the facial bones and orbits windowed for bone and soft tissu e. Additional coronal and sagittal reconstructed images reviewed. All images stored on PACS. All CT scanners at this facility use dose modulation, iterative reconstruction, and/or weight based d osing when appropriate to reduce radiation dose to as low as reasonably achievable (ALARA). [facility]: Dose Right [facility]: CareDose [facility]: Dose Right [facility]: Teradose 4D [facility]: [employer] RADIATION DOSE: CT Rad equipment meets quality standard of care and radiation dose reduction techniq ues were employed. CTDIvol: 42.2 mGy. DLP: 734 mGy-cm. mGy. LIMITATIONS: None. FINDINGS: FACIAL BONES: No fracture or bone lesion. ORBITS: Intact. No fracture. Symmetric intact globes and retroorbital soft tissues. PARANASAL SINUSES: Small mucous retention cyst in the right sphenoid sinus. No nasal polyps. Maxilla ry sinus outlets are patent. SOFT TISSUES: No mass or edema. INFERIOR BRAIN: Limited view. No acute findings. OTHER: No other significant finding. IMPRESSION: Mild sinus disease. No acute findings. TECHNICAL DOCUMENTATION: JOB ID: [id number] Quality ID # 436: Final reports with documentation of one or more dose reduction techniques (e.g., Au tomated exposure control, adjustment of the mA and/or kV according to patient size, use of iterative reconstruction technique) 2010 [employer]- All Rights Reserved Reading location - IP/workstation name: [email or web address]
--- NOTE | 2018-10-26 17:48 | RADIOLOGY REPORT (SQ) ---
EXAM DESCRIPTION: CT HEAD WITHOUT COMPLETED DATE/TIME: 10/26/2018 5:07 pm REASON FOR STUDY: seizure/head injury COMPARISON: None. TECHNIQUE: Axial images acquired through the brain without intravenous contrast. Images reviewed wi th bone, brain and subdural windows. Additional sagittal and coronal reconstructions were generated. Images stored on PACS. All CT scanners at this facility use dose modulation, iterative reconstruction, and/or weight based d osing when appropriate to reduce radiation dose to as low as reasonably achievable (ALARA). [facility]: Dose Right [facility]: CareDose [facility]: Dose Right [facility]: Teradose 4D [facility]: Smart [employer] RADIATION DOSE: CT Rad equipment meets quality standard of care and radiation dose reduction techniq ues were employed. CTDIvol: 53.2 mGy. DLP: 1044 mGy-cm. mGy. LIMITATIONS: None. FINDINGS: VENTRICLES: Normal size and contour. CEREBRUM: No masses. No hemorrhage. No midline shift. No evidence for acute infarction. Normal gra y/white matter differentiation. No areas of low density in the white matter. CEREBELLUM: No masses. No hemorrhage. No alteration of density. No evidence for acute infarction. EXTRAAXIAL SPACES: No fluid collections. No masses. ORBITS AND GLOBE: No intra- or extraconal masses. Normal contour of globe without masses. CALVARIUM: No fracture. PARANASAL SINUSES: No fluid or mucosal thickening. SOFT TISSUES: No mass or hematoma. OTHER: No other significant finding. IMPRESSION: NORMAL BRAIN CT WITHOUT CONTRAST. EVIDENCE OF ACUTE STROKE: NO. COMMENT: Quality ID # 436: Final reports with documentation of one or more dose reduction techniques (e.g., Automated exposure control, adjustment of the mA and/or kV according to patient size, use of iterative reconstruction technique) TECHNICAL DOCUMENTATION: JOB ID: [id number] [employer]- All Rights Reserved Reading location - IP/workstation name: [email or web address]
[2018-10-26] MEDS ORDERED: KETOROLAC TROMETHAMINE INJ/PF 30 MG/1 ML SDV IV ONE (18:23)
[2018-10-26] MEDS ORDERED: HYDROCODONE/ACETAMINOPHEN 5-325 MG (6 TAB/ER DISP) PO PRN (18:34)
--- NOTE | 2018-10-26 18:35 | ER Document Report ---
ED General - General Chief Complaint: Seizure Stated Complaint: POSSIBLE SEIZURE Time Seen by Provider: 10/26/18 15:09 Primary Care Provider: KHLOE,AGATHA [Primary Care Provider] - Follow up as needed TRAVEL OUTSIDE OF THE [place] IN LAST 30 DAYS: No - HPI Notes: Patient is a 33-year-old female with a history of seizure disorder and on Keppra who presents the emergency department complaining of having 2 seizures this morning with the last one prior to arrival. Patient states that these were unwitnessed. Patient states that she is lying in her bed when she then woke up and she had blood on her shirt and noticed that the inside of her cheek was bit. Patient states that she then had another seizure when she was in her bathroom because she woke up on the floor in the left side of her face hurts. Patient has been having nausea and vomiting since then and is actively vomiting in the pit waiting room. Patient otherwise has a headache. No other concerns or complaints. Denies any headache, fever, neck pain, changes in vision/speech/mentation/hearing, URI, sore throat, chest pain, palpitations, syncope, cough, shortness of breath, wheeze, dyspnea, abdominal pain, diarrhea, urinary retention, dysuria, hematuria, loss of control of bowel or bladder, numbness/tingling, saddle anesthesia, muscle paralysis/weakness, or rash. - Related Data Allergies/Adverse Reactions: No Known Allergies Allergy (Verified 10/26/18 15:00) Past Medical History - Social History Smoking Status: Never Smoker Chew tobacco use (# tins/day): No Frequency of alcohol use: Occasional Drug Abuse: None Family History: Reviewed & Not Pertinent Patient has suicidal ideation: No Patient has homicidal ideation: No - Past Medical History Cardiac Medical History: Denies: Hx Coronary Artery Disease, Hx Heart Attack, Hx Hypertension Pulmonary Medical History: Denies: Hx Asthma, Hx Bronchitis, Hx COPD, Hx Pneumonia Neurological Medical History: Reports: Hx Seizures - SEIZURE X 1, 2 YEARS AGO, NO MEDS, NO SEIZURE SINCE. Denies: Hx Cerebrovascular Accident Renal/ Medical History: Denies: Hx Peritoneal Dialysis Musculoskeletal Medical History: Denies Hx Arthritis Past Surgical History: Reports: Hx Abdominal Surgery - hernia repair, Hx Orthopedic Surgery - L ACL, Bilat shoulders w/hardware - Immunizations Immunizations up to date: Yes Hx Diphtheria, Pertussis, Tetanus Vaccination: Yes Review of Systems - Review of Systems -: Yes All other systems reviewed and negative Physical Exam - Vital signs Vitals: Temp Pulse Resp BP Pulse Ox 98.2 F 81 18 121/87 H 98 10/26/18 15:02 10/26/18 15:02 10/26/18 15:02 10/26/18 15:02 10/26/18 15:02 - Notes Notes: PHYSICAL EXAMINATION: accompanied by female nurse GENERAL: Well-appearing, well-nourished and in no acute distress. A&Ox4. Answers questions appropriately. HEAD: Atraumatic, normocephalic. Non-tender. No carr sign EYES: Pupils equal round and reactive to light, extraocular movements intact, sclera anicteric, conjunctiva are normal. No raccoon eyes/entrapment ENT: EAC clear b/l. TM's intact b/l without erythema, fluid, or perforation. Nares patent and without discharge. oropharynx clear without exudates. No tonsilar hypertrophy or erythema. Moist mucous membranes. No sinus tenderness. No hemotympanum/CSF discharge. + cheek bite noted left side. No tongue bite. NECK: Normal range of motion, supple without lymphadenopathy. No rigidity. No midline tenderness. Spurling negative. Chest: No flail chest. equal rise/fall. Non-tender LUNGS: Breath sounds clear to auscultation bilaterally and equal. No wheezes rales or rhonchi. HEART: Regular rate and rhythm without murmurs, rubs, gallops. ABDOMEN: Soft, nontender, nondistended abdomen. No guarding, no rebound. Normal bowel sounds present. No CVA tenderness bilaterally. no ecchymosis. Musculoskeletal: Ext's b/l: FROM to passive/active. Strength 5+/5. No deficits noted. No bony tenderness of extremities. Back: FROM to passive/active. Strength 5+/5. No vertebral point tenderness, stepoffs, or deformities. No other bony tenderness or ecchymosis. Extremities: No cyanosis, clubbing, or edema b/l. Peripheral pulses 2+. Capillary refill less than 2 seconds. NEUROLOGICAL: NIH 0. GCS 15. Cranial nerves grossly intact. Normal speech, nor mal gait. Normal sensory, motor exams. Reflexes 2+ b/l. RIK's negative. Pronator drift negative. Heel/ventura, finger/nose wnl. PSYCH: Normal mood, normal affect. SKIN: Warm, Dry, normal turgor, no rashes or lesions noted. Course - Re-evaluation Re-evalutation: 10/26/18 18:31 Patient is an afebrile, well-hydrated, 33-year-old female who presents to the ED with a headache, nausea/vomiting status post seizure in known seizure disorder patient. Vitals are acceptable without any significant tachycardia, tachypnea, or hypoxia. PE is otherwise unremarkable for any focal neurological deficits. NIH 0, GCS 15, cranial nerves grossly intact. CT scan of the head and face were unremarkable. CBC, CMP, magnesium, urinalysis, hCG unremarkable. No other labs or imaging warranted at this time based on H&P. Patient was given Keppra and fluids. Patient was given Toradol, zofran, and tylenol which has resolved her headache. Patient states that she is feeling much better and would like to go home. She has not had any recurrence of nausea or vomiting. She is nontoxic- appearing and is tolerating p.o. without any difficulties. Low suspicion for any acute glaucoma, temporal arteritis, meningitis, intracranial hemorrhage, i schemic stroke, or fracture at this time. Patient is aware that this condition can change from initial presentation and that she needs to monitor symptoms closely for any acute changes. Recheck with your PCM/neurologist in 3-5 days. Return to the ED with any worsening/concerning symptoms otherwise as reviewed in discharge. Patient is in agreement. - Vital Signs Vital signs: Temp Pulse Resp BP Pulse Ox 98.2 F 81 18 121/87 H 98 10/26/18 15:02 10/26/18 15:02 10/26/18 15:02 10/26/18 15:02 10/26/18 15:02 - Laboratory Result Diagrams: 10/26/18 16:20 10/26/18 16:20 Laboratory results interpreted by me: 10/26/18 10/26/18 10/26/18 16:00 16:20 16:20 Hgb 11.3 L Hct 34.2 L MCV 79 L MCH 26.2 L RDW 14.2 H AST 38 H Urine Ascorbic Acid 20 H Discharge - Discharge Clinical Impression: Seizure Headache Qualifiers: Headache type: unspecified Headache chronicity pattern: acute headache Intractability: not intractable Qualified Code(s): R51 - Headache Condition: Stable Disposition: HOME, SELF-CARE Instructions: Seizure, Known Epileptic ([facility]) Additional Instructions: Rest, Ice/cool compress Tylenol/ibuprofen as needed Light stretches daily Strength exercises as able Moist heat and massage may help F/u with your PCP/Neurologist in 2-3 days for a recheck Return to the ED with any worsening symptoms and/or development of fever, headache, changes in behavior/mentation/vision/speech, chest pain, palpitations, syncope, shortness of breath, trouble breathing, abdominal pain, n/v/d, blood in stool/urine, loss of control of bowel/bladder, urinary retention, muscle weakness/paralysis, saddle anesthesia, numbness/tingling, or other worsening symptoms that are concerning to you. Prescriptions: Ondansetron [Zofran Odt 4 mg Tablet] 1 - 2 tab PO Q4H PRN #15 tab.rapdis PRN Reason: For Nausea/Vomiting Forms: Elevated Blood Pressure [facility]errals: [facility] [[facility]] - Follow up as needed NEUROLOGY [Provider Group] - 10/30/18
[2018-10-26 18:37] VITALS: BP 116/67
== END 2018-10-26 18:45 | disposition home or self-care (01) ==
LOC: ER 15:00
DX: R56.9 Unspecified convulsions (principal); R51 Headache; R11.2 Nausea with vomiting, unspecified
CPT/HCPCS: 99284; 96361; 96375; 96365; 36415; 87086; 83735; 85025; 81025; 80053; 81001; 70450; 70486; J1885; J2405; J7030; J1953

== ENCOUNTER 2018-12-22 16:47 | Emergency (ER) | payer MEDICAID, OTHER ==
--- NOTE | 2018-12-22 17:09 | ER Document Report ---
ED General - General Chief Complaint: Seizure Stated Complaint: POSSIBLE SEIZURE Time Seen by Provider: 12/22/18 17:08 Primary Care Provider: KHLOE,AGATHA [Primary Care Provider] - Follow up in 3-5 days Notes: Patient is a 33-year-old female with history of epilepsy that presents to the emergency department for chief complaint of seizure. Patient apparently was going to pick remover her daughter from an activity, was sitting down waiting, and had a generalized seizure, reportedly only lasting a minute, she did hit her head on the right side, she is back to her mental baseline at this time, but was postictal initially. She states that she was recently added on a new medication for her seizures about a month ago, does not recall the name of it, she otherwise takes Keppra 750 twice daily. She sees the [facility], but does not currently have a neurologist. She states that she typically gets cluster seizures, after having long breaks without seizures. She complains of aching all over at this time, describes her pain as a 4 out of 10, and her arms and legs. Denies any numbness, weakness or tingling in any of her extremities, denies any loss of vision or changes in her vision. Past Medical History: Epilepsy Past Surgical History: Shoulder surgery, ACL repair, hernia repair Social History: Admits to rare alcohol use, denies tobacco or illicit drug use. Family History: Reviewed and noncontributory for presenting illness Allergies: Reviewed, see documented allergy list. REVIEW OF SYSTEMS: Other than noted above, the 12 point review of systems was reviewed with the patient and were negative, all pertinent findings are included in the HPI. PHYSICAL EXAMINATION: Vital signs reviewed, nursing noted reviewed. GENERAL: Well-appearing, well-nourished and in no acute distress. HEAD: Scalp hematoma noted on the right side of the scalp, and also one noted over the right eyebrow, both are small, around 1 cm in size in diameter. EYES: Eyes appear normal, extraocular movements intact, sclera anicteric, conjunctiva are normal. PERRLA ENT: nares patent, oropharynx clear without exudates. Moist mucous membranes. NECK: Normal range of motion, supple without lymphadenopathy, no midline tenderness LUNGS: Breath sounds clear to auscultation bilaterally and equal. No wheezes rales or rhonchi. HEART: Regular rate and rhythm without murmurs ABDOMEN: Soft, nontender, normoactive bowel sounds. No rebound, guarding, or rigidity. No masses appreciated. EXTREMITIES: Nontender, good range of motion, no pitting or edema. NEUROLOGICAL: No focal neurological deficits. Moves all extremities spon taneously Motor and sensory grossly intact on exam. PSYCH: Normal mood, normal affect. SKIN: Warm, Dry, normal turgor, no rashes or lesions noted on exposed skin TRAVEL OUTSIDE OF THE [place] IN LAST 30 DAYS: No - Related Data Allergies/Adverse Reactions: No Known Allergies Allergy (Verified 10/26/18 15:00) Past Medical History - Social History Smoking Status: Current Some Day Smoker Family History: Reviewed & Not Pertinent - Past Medical History Cardiac Medical History: Denies: Hx Coronary Artery Disease, Hx Heart Attack, Hx Hypertension Pulmonary Medical History: Denies: Hx Asthma, Hx Bronchitis, Hx COPD, Hx Pneumonia Neurological Medical History: Reports: Hx Seizures - SEIZURE X 1, 2 YEARS AGO, NO MEDS, NO SEIZURE SINCE. Denies: Hx Cerebrovascular Accident Renal/ Medical History: Denies: Hx Peritoneal Dialysis Musculoskeletal Medical History: Denies Hx Arthritis Past Surgical History: Reports: Hx Abdominal Surgery - hernia repair, Hx Orthopedic Surgery - L ACL, Bilat shoulders w/hardware - Immunizations Immunizations up to date: Yes Hx Diphtheria, Pertussis, Tetanus Vaccination: Yes Physical Exam - Vital signs Vitals: Temp Pulse Resp BP Pulse Ox 98.1 F 100 20 121/73 100 12/22/18 16:58 12/22/18 16:58 12/22/18 16:58 12/22/18 16:58 12/22/18 16:58 Course - Re-evaluation Re-evalutation: Patient seen and examined vital signs reviewed. Laboratory data and/or imaging were ordered as appropriate for the patient's presenting symptoms and complaint, with consideration of any critical or life threatening conditions that may be associated with their obtained history and exam as noted above. Patient was treated with IV fluids, IV Toradol and Tylenol Results were reviewed when available and demonstrated negative UA, negative hCG, negative CT imaging of the head The patient was re-evaluated and was stable and improved, patient was given IV Keppra bolusing, advised to follow-up with neurology. Evaluation was most consistent with seizure and a known epileptic Results were discussed with the patient at this point, after careful consideration I feel that that patient can be discharged from the emergency department, the patient was educated treatments and reasons to return to the emergency department based on their presumed diagnosis as noted above, they were advised to followup with a primary care physician in 2-3 days. Patient was agreeable to plan of care. *Note is created using voice recognition software and may contain spelling, syntax or grammatical errors. Laboratory 12/22/18 18:40 Urine Color STRAW Urine Appearance CLEAR Urine pH 7.0 Ur Specific [place] 1.013 Urine Protein NEGATIVE Urine Glucose (UA) NEGATIVE Urine Ketones NEGATIVE Urine Blood NEGATIVE Urine Nitrite NEGATIVE Urine Bilirubin NEGATIVE Urine Urobilinogen NEGATIVE Ur Leukocyte Esterase NEGATIVE Urine WBC (Auto) 0 Urine RBC (Auto) 1 Squamous Epi Cells Auto 1 Urine Mucus (Auto) RARE Urine Ascorbic Acid NEGATIVE Urine HCG, Qual NEGATIVE Head CT 12/22/18 17:40 IMPRESSION: NORMAL BRAIN CT WITHOUT CONTRAST. EVIDENCE OF ACUTE STROKE: NO. - Vital Signs Vital signs: Temp Pulse Resp BP Pulse Ox 98.1 F 100 16 114/54 L 94 12/22/18 16:58 12/22/18 16:58 12/22/18 19:54 12/22/18 19:55 12/22/18 19:55 Discharge - Discharge Clinical Impression: Seizure Closed head injury Qualifiers: Encounter type: initial encounter Qualified Code(s): S09.90XA - Unspecified injury of head, initial encounter Condition: Stable Disposition: HOME, SELF-CARE Instructions: Seizure, Known Epileptic ([facility]) Additional Instructions: Please follow-up with a neurologist, as I believe you need a referral as you seem to be having breakthrough seizures on your medications, I recommend continuing her current dosing of medication, and following up with the neurologist, their phone numbers listed below [facility] neurology: Phone number: [phone] Address: [address] [place] [address] Referrals: [facility] [[facility]] - Follow up in 3-5 days
[2018-12-22] MEDS ORDERED: NORMAL SALINE 1000 ML 1,000 ML IV ONE (17:37)
[2018-12-22] MEDS ORDERED: LEVETIRACETAM 1000 MG/NACL-ISO 1,000 MG/100 ML RTUPB IV ONE (17:38)
--- NOTE | 2018-12-22 18:04 | RADIOLOGY REPORT (SQ) ---
EXAM DESCRIPTION: CT HEAD WITHOUT COMPLETED DATE/TIME: 12/22/2018 5:52 pm REASON FOR STUDY: seizure, head injury COMPARISON: None. TECHNIQUE: Axial images acquired through the brain without intravenous contrast. Images reviewed wi th bone, brain and subdural windows. Additional sagittal and coronal reconstructions were generated. Images stored on PACS. All CT scanners at this facility use dose modulation, iterative reconstruction, and/or weight based d osing when appropriate to reduce radiation dose to as low as reasonably achievable (ALARA). [facility]: Dose Right [facility]: CareDose [facility]: Dose Right [facility]: Teradose 4D [facility]: Smart [employer] RADIATION DOSE: CT Rad equipment meets quality standard of care and radiation dose reduction techniq ues were employed. CTDIvol: 53.2 mGy. DLP: 937 mGy-cm. mGy. LIMITATIONS: None. FINDINGS: VENTRICLES: Normal size and contour. CEREBRUM: No masses. No hemorrhage. No midline shift. No evidence for acute infarction. Normal gra y/white matter differentiation. No areas of low density in the white matter. CEREBELLUM: No masses. No hemorrhage. No alteration of density. No evidence for acute infarction. EXTRAAXIAL SPACES: No fluid collections. No masses. ORBITS AND GLOBE: No intra- or extraconal masses. Normal contour of globe without masses. CALVARIUM: No fracture. PARANASAL SINUSES: No fluid or mucosal thickening. SOFT TISSUES: No mass or hematoma. OTHER: No other significant finding. IMPRESSION: NORMAL BRAIN CT WITHOUT CONTRAST. EVIDENCE OF ACUTE STROKE: NO. COMMENT: Quality ID # [id number]: Final reports with documentation of one or more dose reduction techniques (e.g., Automated exposure control, adjustment of the mA and/or kV according to patient size, use of iterative reconstruction technique) TECHNICAL DOCUMENTATION: JOB ID: [id number] [employer]- All Rights Reserved Reading location - IP/workstation name: [email or web address]
[2018-12-22] MEDS ORDERED: ACETAMINOPHEN 325 MG TABLET PO ONE (18:59)
[2018-12-22 19:15] LABS: APPEARANCE,URINE CLEAR; BILIRUBIN,URINE NEGATIVE (NEGATIVE); COLOR,URINE STRAW; GLUCOSE, URINE NEGATIVE (NEGATIVE); KETONES,URINE NEGATIVE (NEGATIVE); LEUKOCYTE ESTERASE,URINE NEGATIVE (NEGATIVE); NITRITE,URINE NEGATIVE (NEGATIVE); PROTEIN,URINE NEGATIVE (NEGATIVE); URINE SPECIFIC GRAVITY 1.013; UROBILINOGEN,URINE NEGATIVE mg/dL (<2.0)
[2018-12-22] MEDS ORDERED: KETOROLAC TROMETHAMINE INJ/PF 30 MG/1 ML SDV IV ONE (19:24)
[2018-12-22] MEDS ORDERED: ONDANSETRON HCL INJ/PF 4 MG/2 ML SDV ONE (19:34)
[2018-12-22 19:57] VITALS: BP 114/54
== END 2018-12-22 20:09 | disposition home or self-care (01) ==
LOC: ER 16:47
DX: G40.909 Epilepsy, unspecified, not intractable, without status epilepticus (principal); Z79.899 Other long term (current) drug therapy; S00.03XA Contusion of scalp, initial encounter; S00.83XA Contusion of other part of head, initial encounter; X58.XXXA Exposure to other specified factors, initial encounter; F17.200 Nicotine dependence, unspecified, uncomplicated
CPT/HCPCS: 99284; 96375; 96365; 87086; 81025; 81001; 70450; J1885; J2405; J7030; J1953

== ENCOUNTER 2018-12-28 10:22 | Emergency (ER) | payer OTHER ==
[2018-12-28 10:29] VITALS: BP 110/70
--- NOTE | 2018-12-28 10:53 | ER Document Report ---
ED Medical Screen (RME) - General Chief Complaint: Seizure Stated Complaint: POSSIBLE SEIZURE Time Seen by Provider: 12/28/18 10:35 Primary Care Provider: [facility] [Primary Care Provider] - Follow up as needed Mode of Arrival: Wheelchair Information source: Patient Notes: 33-year-old female presented to ED for complaint of a seizure at home this morning. She states her friend and her daughter woke up say and she just had a seizure. Patient does not remember anything until he woke up. Patient does have a history of seizures and is on Keppra and gabapentin. She states her last seizure before today was on Tuesday. She states she is also has a history of ACL repairs inguinal hernia repair shoulder surgery for fracturing both shoulders. She lives with her partner and her daughter and drinks wine once a week. She is alert oriented respirations regular and unlabored speaking in full sentences. Patient states she is very tearful now because she is nervous due to having a seizure this morning. I have greeted and performed a rapid initial assessment of this patient. A comprehensive ED assessment and evaluation of the patient, analysis of test resu lts and completion of medical decision making process will be conducted by an additional ED providers. Dictation of this chart was performed using voice recognition software; therefore, there may be some unintended grammatical errors. TRAVEL OUTSIDE OF THE [place] IN LAST 30 DAYS: No - Related Data Allergies/Adverse Reactions: No Known Allergies Allergy (Verified 12/28/18 10:22) Past Medical History - Past Medical History Cardiac Medical History: Denies: Hx Coronary Artery Disease, Hx Heart Attack, Hx Hypertension Pulmonary Medical History: Denies: Hx Asthma, Hx Bronchitis, Hx COPD, Hx Pneumonia Neurological Medical History: Reports: Hx Seizures - SEIZURE X 1, 2 YEARS AGO, NO MEDS, NO SEIZURE SINCE. Denies: Hx Cerebrovascular Accident Renal/ Medical History: Denies: Hx Peritoneal Dialysis Musculoskeltal Medical History: Denies Hx Arthritis Past Surgical History: Reports: Hx Abdominal Surgery - hernia repair, Hx Orthop edic Surgery - L ACL, Bilat shoulders w/hardware - Immunizations Immunizations up to date: Yes Hx Diphtheria, Pertussis, Tetanus Vaccination: Yes Physical Exam - Vital signs Vitals: Temp Pulse Resp BP Pulse Ox 97.8 F 93 16 110/70 100 12/28/18 10:27 12/28/18 10:27 12/28/18 10:27 12/28/18 10:27 12/28/18 10:27 Course - Vital Signs Vital signs: Temp Pulse Resp BP Pulse Ox 97.8 F 93 16 110/70 100 12/28/18 10:27 12/28/18 10:27 12/28/18 10:27 12/28/18 10:27 12/28/18 10:27 Doctor's Discharge - Discharge [facility]errals: [facility] [[facility]] - Follow up as needed
[2018-12-28 11:15] LABS: ABSOLUTE BASOPHILS # (AUTO) 0.1 10^3/uL (0.0-0.2); ABSOLUTE LYMPHOCYTES (AUTO) 0.8 10^3/uL (0.5-4.7); ABSOLUTE MONOCYTES (AUTO) 0.3 10^3/uL (0.1-1.4); ABSOLUTE NEUT (AUTO) 4.5 10^3/uL (1.7-8.2); BASOPHILS % (AUTO) 0.9 % (0-2); EOSINOPHILS % (AUTO) 0.1 % (0-6); HEMATOCRIT 32.8 % (36.0-47.0); HEMOGLOBIN 10.6 g/dL (12.0-15.5); LYMPHOCYTES % (AUTO) 14.3 % (13-45); MEAN CORPUSCULAR HEMOGLOBIN 24.8 pg (27.0-33.4); MEAN CORPUSCULAR HGB CONC 32.3 g/dL (32.0-36.0); MEAN CORPUSCULAR VOLUME 77 fl (80-97); MONOCYTES % (AUTO) 4.9 % (3-13); PLATELET COUNT 200 10^3/uL (150-450); RED BLOOD COUNT 4.27 10^6/uL (3.72-5.28); RED CELL DISTRIBUTION WIDTH 14.7 % (11.5-14.0); SEGMENTED NEUTROPHILS % (AUTO) 79.8 % (42-78); TOTAL CELLS COUNTED % (AUTO) 100 %; WHITE BLOOD COUNT 5.7 10^3/uL (4.0-10.5)
[2018-12-28 11:35] LABS: ALANINE AMINOTRANSFERASE 27 U/L (9-52); ALBUMIN 4.3 g/dL (3.5-5.0); ALKALINE PHOSPHATASE 63 U/L (38-126); ANION GAP 7 (5-19); ASPARTATE AMINO TRANSFERASE 38 U/L (14-36); BILIRUBIN,DIRECT 0.3 mg/dL (0.0-0.4); BILIRUBIN,TOTAL 0.9 mg/dL (0.2-1.3); BLOOD UREA NITROGEN 8 mg/dL (7-20); CALCIUM 9.7 mg/dL (8.4-10.2); CARBON DIOXIDE 25 mmol/L (22-30); CHLORIDE 105 mmol/L (98-107); GLUCOSE 100 mg/dL (75-110); POTASSIUM 4.8 mmol/L (3.6-5.0); SODIUM 137.4 mmol/L (137-145); TOTAL PROTEIN 7.8 g/dL (6.3-8.2)
[2018-12-28 12:45] LABS: APPEARANCE,URINE SLIGHTLY-CLOUDY; BILIRUBIN,URINE NEGATIVE (NEGATIVE); COLOR,URINE YELLOW; GLUCOSE, URINE NEGATIVE (NEGATIVE); KETONES,URINE TRACE mg/dL (NEGATIVE); LEUKOCYTE ESTERASE,URINE NEGATIVE (NEGATIVE); NITRITE,URINE NEGATIVE (NEGATIVE); PROTEIN,URINE NEGATIVE (NEGATIVE); URINE SPECIFIC GRAVITY 1.015; UROBILINOGEN,URINE NEGATIVE mg/dL (<2.0)
[2018-12-28 12:59] LABS: URINE AMPHETAMINES SCREEN NEGATIVE; URINE BARBITURATES SCREEN NEGATIVE; URINE BENZODIAZEPINES SCREEN NEGATIVE; URINE COCAINE SCREEN NEGATIVE; URINE MARIJUANA (THC) SCREEN UNCONFIRMED POSITIVE; URINE METHADONE SCREEN NEGATIVE; URINE PHENCYCLIDINE SCREEN NEGATIVE
[2018-12-28] MEDS ORDERED: KETOROLAC TROMETHAMINE INJ/PF 30 MG/1 ML SDV IV ONE (13:20)
[2018-12-28] MEDS ORDERED: METOCLOPRAMIDE HCL INJ/PF 10 MG/2 ML SDV IV ONE (13:20)
[2018-12-28] MEDS ORDERED: DIPHENHYDRAMINE HCL 50 MG/ML VIAL IV ONE (13:20)
--- NOTE | 2018-12-28 13:52 | ER Document Report ---
ED Seizure - General Chief Complaint: Seizure Stated Complaint: POSSIBLE SEIZURE Time Seen by Provider: 12/28/18 10:35 [facility] [[facility]] - Follow up as needed Mode of Arrival: Wheelchair Notes: 33-year-old female with [facility] presents to the emergency department after a suspected seizure this morning. She had 2 seizures on Tuesday and had one more today. She is currently sleeping in the room so unable to obtain ROS directly from her. Family member states that she has seizures about once a month and she was recently switched to Keppra 1500 mg twice daily and is also on gabapentin daily for unknown reason. Patient typically has a postictal state and her family in the room she had this today. [facility] on January 03. No recent illness that we are aware of. - Related Data Allergies/Adverse Reactions: No Known Allergies Allergy (Verified 12/28/18 10:22) Past Medical History - General Information source: Patient - Social History Smoking Status: Never Smoker Frequency of alcohol use: None Drug Abuse: None Family History: Reviewed & Not Pertinent Patient has suicidal ideation: No Patient has homicidal ideation: No - Past Medical History Cardiac Medical History: Denies: Hx Coronary Artery Disease, Hx Heart Attack, Hx Hypertension Pulmonary Medical History: Denies: Hx Asthma, Hx Bronchitis, Hx COPD, Hx Pneumonia Neurological Medical History: Reports: Hx Seizures - SEIZURE X 1, 2 YEARS AGO, NO MEDS, NO SEIZURE SINCE. Denies: Hx Cerebrovascular Accident Renal/ Medical History: Denies: Hx Peritoneal Dialysis Musculoskeletal Medical History: Denies Hx Arthritis Past Surgical History: Reports: Hx Abdominal Surgery - hernia repair, Hx Orthopedic Surgery - L ACL, Bilat shoulders w/hardware - Immunizations Immunizations up to date: Yes Hx Diphtheria, Pertussis, Tetanus Vaccination: Yes Review of Systems - Review of Systems Constitutional: See HPI EENT: No symptoms reported Cardiovascular: See HPI Respiratory: See HPI Gastrointestinal: See HPI Genitourinary: No symptoms reported Female Genitourinary: No symptoms reported Musculoskeletal: No symptoms reported Skin: No symptoms reported Hematologic/Lymphatic: No symptoms reported Neurological/Psychological: See HPI Physical Exam - Vital signs Vitals: Temp Pulse Resp BP Pulse Ox 97.8 F 93 16 110/70 100 12/28/18 10:27 12/28/18 10:27 12/28/18 10:27 12/28/18 10:27 12/28/18 10:27 - Notes Notes: PHYSICAL EXAMINATION: Reviewed vital signs and charting by RN GENERAL: Alert, interacts well. No acute distress. Appears pekid HEAD: Normocephalic, atraumatic. EYES: Pupils equal and round. Extraocular movements intact. ENT: Oral mucosa moist, tongue midline. NECK: Full range of motion. Trachea midline. LUNGS: Clear to auscultation bilaterally, no wheezes, rales, or rhonchi. No respiratory distress. HEART: Regular rate and rhythm. No murmur ABDOMEN: soft, non-tender. No distention. Bowel sounds present EXTREMITIES: Moves all 4 extremities spontaneously. No edema, No cyanosis. NEURO: A &O X 3, normal speech, normal gailt, PERRL, EOMI, SILT, follows commands in all 4 extremities, no gross abnormalities of cranial nerves, no focal neuro deficits, sky line yarder strength 5/5 bilateral, 5/5 strength in both proximal and distal upper and lower extremities PSYCH: Normal affect, normal mood. SKIN: Warm, dry, pallor. No rashes or lesions noted. Course - Re-evaluation Re-evalutation: 12/28/18 14:23 Patient presents with a seizure and was initially postictal but now back to baseline and just tired. She complained of severe headache so we gave her a migraine cocktail. She reports that she wants to go home. I discussed with her that because she is on max dose Keppra giving her a Keppra bolus would not be of any benefit and also it is outside of our scope to consider adding a second agent like Dilantin at this time. She does have [facility]. She is currently stable for discharge with normal vital signs. 12/28/18 14:39 - Vital Signs Vital signs: Temp Pulse Resp BP Pulse Ox 97.8 F 93 16 110/70 100 12/28/18 10:27 12/28/18 10:27 12/28/18 10:27 12/28/18 10:27 12/28/18 10:27 - Laboratory Result Diagrams: 12/28/18 10:50 12/28/18 10:50 Laboratory results interpreted by me: 06/13/19 06/13/19 06/13/19 10:50 10:50 10:50 Hgb 10.6 L Hct 32.8 L MCV 77 L MCH 24.8 L RDW 14.7 H Seg Neutrophils % 79.8 H AST 38 H Urine Ketones TRACE H Urine Blood LARGE H Valproic Acid < 10.0 L Discharge - Discharge Clinical Impression: Seizure Headache Qualifiers: Headache type: unspecified Headache chronicity pattern: acute headache Intractability: not intractable Qualified Code(s): R51 - Headache Condition: Good Disposition: HOME, SELF-CARE Additional Instructions: Today you had a seizure. It is very important that you do not engage in any activities that could result in severe injury should you have a seizure. Specifically, do not drive a vehicle, go into a body of water, take a bath, climb ladders, or operate any heavy machinery until you have been cleared by your neurologist. Please return to the ED immediately if you have multiple seizures close together, develop a severe headache, weakness, numbness, difficulty speaking, have a seizure in which you do not return to normal within 1 hour of the seizure, or have any other symptoms that are concerning to you. Referrals: [facility] [[facility]] - Follow up as needed
== END 2018-12-28 15:16 | disposition home or self-care (01) ==
LOC: ER 10:22
DX: G40.909 Epilepsy, unspecified, not intractable, without status epilepticus (principal); R51 Headache; Z79.899 Other long term (current) drug therapy
CPT/HCPCS: 99284; 96374; 96375; 36415; 84702; 85025; 80053; 81001; 80164; 80307; J1200; J1885; J2765

== ENCOUNTER 2019-06-05 05:43 | Emergency (ER) | payer OTHER ==
[2019-06-05] MEDS ORDERED: DIPH/PERTUSS(ACELL)/TETANUS VAC/PF 0.5 ML SYR (>=10YO) IM ONE (06:29)
--- NOTE | 2019-06-05 06:57 | ER Document Report ---
ED Seizure <RUPA HENRY - Last Filed: 06/05/19 09:18> - HPI Patient complains to provider of: History of seizures Number of episodes: 1 Quality of pain: No pain Severity: Mild Pain Level: Denies Continued on arrival to ED: No Can details of seizure be obtained/verified: Yes Episode witnessed (by whom): Yes - family Current seizure medications: Gabatin, Keppra, Lamictal. No: Carbamazepine, Phenytoin, Phenobarbital, Trileptal, Valproic acid, Vimpat, Other Preceding symptoms/context: denies: Recent illness/fever, Recent alcohol intake, Recent drug use, Sleep deprivation, Missed dose of meds, Changed meds or dosage, Somnolence, Other History of: denies: Brain tumor or mets, CVA, Hydrocephalus, Migraines, TBI, V/P shunt, Other Character of seizure: Generalized shaking Post-ictal symptoms: No: None, Confusion, Headache, Lost motor, Lost sensation, Speech difficulty, Visual disturbance, Other Injuries: Lip Associated Symptoms: denies: None, Blow to head, Confusion, Memory loss, Loss consciousness, Other - Related Data Home Medications: Keppra. Lamotrigine. gabapentin <ZACKARY SAHU - Last Filed: 06/05/19 10:36> - General Chief Complaint: Probable Seizure Stated Complaint: LIP LACERATION/POSSIBLE SEIZURE [facility] [[facility]] - Follow up as needed Notes: Patient claims that she may have had a seizure. Takes Lamictal and gabapentin and Keppra.. She has not missed any doses apparently per family had her normal tonic-clonic seizure she is now awake and alert without any complaints. Does however have a laceration to her lip that will be repaired by the PA. (ZACKARY SAHU) - Related Data Allergies/Adverse Reactions: No Known Allergies Allergy (Verified 12/28/18 10:22) Past Medical History - Social History Smoking Status: Never Smoker Chew tobacco use (# tins/day): No Frequency of alcohol use: Rare Drug Abuse: None Family History: Reviewed & Not Pertinent Patient has suicidal ideation: No Patient has homicidal ideation: No - Past Medical History Cardiac Medical History: Denies: Hx Coronary Artery Disease, Hx Heart Attack, Hx Hypertension Pulmonary Medical History: Denies: Hx Asthma, Hx Bronchitis, Hx COPD, Hx Pneumonia Neurological Medical History: Reports: Hx Seizures - SEIZURE X 1, 2 YEARS AGO, NO MEDS, NO SEIZURE SINCE. Denies: Hx Cerebrovascular Accident Renal/ Medical History: Denies: Hx Peritoneal Dialysis Musculoskeletal Medical History: Denies Hx Arthritis Past Surgical History: Reports: Hx Abdominal Surgery - hernia repair, Hx Orthopedic Surgery - L ACL, Bilat shoulders w/hardware - Immunizations Immunizations up to date: Yes Hx Diphtheria, Pertussis, Tetanus Vaccination: Yes <ZACKARY SAHU - Last Filed: 06/05/19 10:36> Review of Systems - Review of Systems Constitutional: denies: No symptoms reported, See HPI, Chills, Diaphoresis, Fever, Malaise, Weakness, Other, Weight gain, Weight loss, Recent illness EENT: Other - lip laceration. denies: No symptoms reported, See HPI, Eye pain, Eye discharge, Blurred vision, Tearing, Double vision, Ear pain, Ear discharge, Nose pain, Nose congestion, Nose discharge, Sinus pressure, Sinus discharge, Throat pain, Difficulty swallowing, Throat swelling, Mouth pain, Mouth swelling, Dental problem, Vertigo Cardiovascular: denies: No symptoms reported, See HPI, Chest pain, Palpitations, Heart racing, Orthopnea, Dyspnea, Syncope, Dizziness, Lightheaded, Edema, Other, Paroxysmal Nocturnal Dysp Respiratory: denies: No symptoms reported, See HPI, Cough, Hurts to breathe, Hemoptysis, Short of breath, Sputum, Stridor, Wheezing, Other Gastrointestinal: denies: No symptoms reported, See HPI, Abdomen distended, Abdominal pain, Diarrhea, Nausea, Vomiting, Constipation, Blood streaked bowels, Poor appetite, Poor fluid intake, Blood in vomit, Black stools, Rectal bleeding, Last bowel movement, Fecal incontinence, Other Genitourinary: denies: No symptoms reported, See HPI, Burning, Dysuria, Discharge, Frequency, Flank pain, Hematuria, Incontinence, Pain, Urgency, Retention, Other Musculoskeletal: No symptoms reported, See HPI, Back pain, Gout, Joint pain, Joint swelling, Muscle pain, Muscle stiffness, Neck pain, Deformity, Leg swelling, Ankle swelling, Other Neurological/Psychological: Seizure. denies: No symptoms reported, See HPI, Confusion, Dementia, Depression, Hallucinations, Anxiety, Homicidal ideation, Sensory change, Weakness, Gait changes, Loss of power, Paralysis, Lost consciousness, Headaches, Speech impairment, Numbness, Suicidal ideation, Tingling, Tremor, Other -: Yes All other systems reviewed and negative <ZACKARY SAHU - Last Filed: 06/05/19 10:36> Physical Exam <ZACKARY SAHU - Last Filed: 06/05/19 10:36> - Vital signs Vitals: Temp Pulse Resp BP Pulse Ox 98.1 F 102 H 18 124/68 100 06/05/19 05:52 06/05/19 05:52 06/05/19 05:52 06/05/19 05:52 06/05/19 05:52 Notes: PHYSICAL EXAMINATION: GENERAL: Well-appearing, well-nourished and in no acute distress. HEAD: Atraumatic, normocephalic. EYES: Pupils equal round and reactive to light, extraocular movements intact, sclera anicteric, conjunctiva are normal. ENT: nares patent, oropharynx clear without exudates. 1-2 cm lip laceration laterally. no teeth involvement Moist mucous membranes. NECK: Normal range of motion, supple without lymphadenopathy LUNGS: Breath sounds clear to auscultation bilaterally and equal. No wheezes rales or rhonchi. HEART: Regular rate and rhythm without murmurs ABDOMEN: Soft, nontender, normoactive bowel sounds. No guarding, no rebound. No masses appreciated. EXTREMITIES: Normal range of motion, no pitting or edema. No cyanosis. NEUROLOGICAL: No focal neurological deficits. Moves all extremities spontaneously and on command. PSYCH: Normal mood, normal affect. SKIN: Warm, Dry, normal turgor, no rashes or lesions noted. (ZACKARY SAHU) Course - Laboratory Result Diagrams: 06/05/19 07:52 06/05/19 07:53 <RUPA HENRY - Last Filed: 06/05/19 09:18> - Laboratory Result Diagrams: 06/05/19 07:52 06/05/19 07:53 - Diagnostic Test Radiology reviewed: Image reviewed, Reports reviewed <ZACKARY SAHU - Last Filed: 06/05/19 10:36> - Re-evaluation Re-evalutation: 06/05/19 07:43 Apparently patient had a seizure when I walked in the room she was just finishing a tonic-clonic seizure. We did give her some Ativan I will load her with Keppra she takes 1500 mg a day not twice a day. I will also check some additional labs and a CT. (ZACKARY SAHU) - Vital Signs Vital signs: Temp Pulse Resp BP Pulse Ox 98.1 F 102 H 28 H 119/69 96 06/05/19 05:52 06/05/19 05:52 06/05/19 09:00 06/05/19 08:12 06/05/19 10:08 - Laboratory Laboratory results interpreted by me: 06/05/19 06/05/19 06/05/19 07:52 07:53 07:53 Hgb 11.7 L MCH 25.2 L MCHC 30.9 L RDW 16.8 H Chloride 109 H Carbon Dioxide 11 L Anion Gap 23 H Lactic Acid (Sepsis) 17.7 H AST 54 H Urine Protein Urine Blood 06/05/19 08:00 Hgb MCH MCHC RDW Chloride Carbon Dioxide Anion Gap Lactic Acid (Sepsis) AST Urine Protein 100 H Urine Blood SMALL H Procedures - Laceration/Wound Repair Upper lip Wound length (cm): 1.5 Wound's Depth, Shape: Superficial, Irregular Laceration pre-procedure: Other - chlorhexadine/saline Anesthetic type: Other - topical LET Wound explored: Clean, No foreign body removed Irrigated w/ Saline (mLs): 100 Wound Debrided: none Wound Repaired With: Sutures Suture Size/Type: 6:0, Ethilon Number of Sutures: 5 Layer Closure?: No Post-procedure wound care: Sterile dressing applied Post-procedure NV exam normal: Yes Complications: No <RUPA HENRY - Last Filed: 06/05/19 09:18> Discharge <RUPA HENRY - Last Filed: 06/05/19 09:18> <ZACKARY SAHU - Last Filed: 06/05/19 10:36> - Discharge Clinical Impression: Seizure Lip laceration Qualifiers: Encounter type: initial encounter Qualified Code(s): S01.511A - Laceration without foreign body of lip, initial encounter Disposition: HOME, SELF-CARE Instructions: Antibiotic Ointment Protection ([facility]), Laceration Care ([facility]), Tetanus Immunization Given ([facility]) Additional Instructions: Patient should return if she gets worse and talk to her doctor about possibly increasing her Keppra or other medications return if she has another seizure. Prescriptions: Cephalexin Monohydrate [Keflex 500 mg Capsule] 500 mg PO Q6 #28 capsule [facility]: [facility] [[facility]] - Follow up as needed
[2019-06-05] MEDS ORDERED: LIDOCAINE 1% INJ-PF (10 MG/ML) 30 ML SDV INJ ONE (07:00)
[2019-06-05] MEDS ORDERED: LORAZEPAM INJ 2 MG/1 ML VIAL ONE (07:38)
[2019-06-05] MEDS ORDERED: LORAZEPAM INJ 2 MG/1 ML VIAL IV ONE (07:40)
[2019-06-05] MEDS ORDERED: LEVETIRACETAM 1000 MG/NACL-ISO 1,000 MG/100 ML RTUPB IV ONE (07:40)
[2019-06-05] MEDS ORDERED: LIDOCAINE 4%/TETRACAINE 0.5%/EPI 0.18% 5 ML TOPICAL SOLN TOP ONE (08:17)
[2019-06-05 08:19] LABS: ABSOLUTE BASOPHILS # (AUTO) 0.1 10^3/uL (0.0-0.2); ABSOLUTE LYMPHOCYTES (AUTO) 2.8 10^3/uL (0.5-4.7); ABSOLUTE MONOCYTES (AUTO) 0.9 10^3/uL (0.1-1.4); ABSOLUTE NEUT (AUTO) 5.4 10^3/uL (1.7-8.2); BASOPHILS % (AUTO) 0.9 % (0-2); EOSINOPHILS % (AUTO) 0.4 % (0-6); HEMOGLOBIN 11.7 g/dL (12.0-15.5); LYMPHOCYTES % (AUTO) 30.6 % (13-45); MEAN CORPUSCULAR HEMOGLOBIN 25.2 pg (27.0-33.4); MEAN CORPUSCULAR HGB CONC 30.9 g/dL (32.0-36.0); MEAN CORPUSCULAR VOLUME 82 fl (80-97); MONOCYTES % (AUTO) 9.7 % (3-13); PLATELET COUNT 215 10^3/uL (150-450); RED BLOOD COUNT 4.65 10^6/uL (3.72-5.28); RED CELL DISTRIBUTION WIDTH 16.8 % (11.5-14.0); SEGMENTED NEUTROPHILS % (AUTO) 58.4 % (42-78); TOTAL CELLS COUNTED % (AUTO) 100 %; WHITE BLOOD COUNT 9.2 10^3/uL (4.0-10.5)
[2019-06-05 08:20] LABS: APPEARANCE,URINE SLIGHTLY-CLOUDY; BILIRUBIN,URINE NEGATIVE (NEGATIVE); COLOR,URINE YELLOW; GLUCOSE, URINE NEGATIVE (NEGATIVE); KETONES,URINE NEGATIVE (NEGATIVE); LEUKOCYTE ESTERASE,URINE NEGATIVE (NEGATIVE); NITRITE,URINE NEGATIVE (NEGATIVE); PROTEIN,URINE 100 mg/dL (NEGATIVE); URINE SPECIFIC GRAVITY 1.012; UROBILINOGEN,URINE NEGATIVE mg/dL (<2.0)
[2019-06-05 08:40] LABS: ALBUMIN 4.5 g/dL (3.5-5.0); ALKALINE PHOSPHATASE 73 U/L (38-126); ASPARTATE AMINO TRANSFERASE 54 U/L (14-36); BILIRUBIN,DIRECT 0.2 mg/dL (0.0-0.4); BILIRUBIN,TOTAL 0.9 mg/dL (0.2-1.3); BLOOD UREA NITROGEN 8 mg/dL (7-20); CALCIUM 9.6 mg/dL (8.4-10.2); GLUCOSE 104 mg/dL (75-110); TOTAL PROTEIN 8.1 g/dL (6.3-8.2)
[2019-06-05 08:40] LABS: URINE AMPHETAMINES SCREEN NEGATIVE; URINE BARBITURATES SCREEN NEGATIVE; URINE BENZODIAZEPINES SCREEN NEGATIVE; URINE COCAINE SCREEN NEGATIVE; URINE METHADONE SCREEN NEGATIVE; URINE PHENCYCLIDINE SCREEN NEGATIVE
[2019-06-05 08:45] LABS: CARBON DIOXIDE 11 mmol/L (22-30); CHLORIDE 109 mmol/L (98-107)
[2019-06-05 08:46] LABS: URINE MARIJUANA (THC) SCREEN UNCONFIRMED POSITIVE
[2019-06-05 09:00] LABS: ANION GAP 23 (5-19)
[2019-06-05] MEDS ORDERED: ACETAMINOPHEN 325 MG TABLET PO ONE (10:14)
--- NOTE | 2019-06-05 10:20 | RADIOLOGY REPORT (SQ) ---
EXAM DESCRIPTION: CT HEAD WITHOUT COMPLETED DATE/TIME: 06/05/2019 10:07 am REASON FOR STUDY: breakthrough seizures COMPARISON: 12/22/2018 TECHNIQUE: Axial images acquired through the brain without intravenous contrast. Images reviewed wi th bone, brain and subdural windows. Additional sagittal and coronal reconstructions were generated. Images stored on PACS. All CT scanners at this facility use dose modulation, iterative reconstruction, and/or weight based d osing when appropriate to reduce radiation dose to as low as reasonably achievable (ALARA). [facility]: Dose Right [facility]: CareDose [facility]: Dose Right [facility]: Teradose 4D [facility]: CallResto RADIATION DOSE: CT Rad equipment meets quality standard of care and radiation dose reduction techniq ues were employed. CTDIvol: 53.2 mGy. DLP: 991 mGy-cm. mGy. LIMITATIONS: None. FINDINGS: VENTRICLES: Normal size and contour. CEREBRUM: No masses. No hemorrhage. No midline shift. No evidence for acute infarction. Normal gra y/white matter differentiation. No areas of low density in the white matter. CEREBELLUM: No masses. No hemorrhage. No alteration of density. No evidence for acute infarction. EXTRAAXIAL SPACES: No fluid collections. No masses. ORBITS AND GLOBE: No intra- or extraconal masses. Normal contour of globe without masses. CALVARIUM: No fracture. PARANASAL SINUSES: No fluid or mucosal thickening. SOFT TISSUES: No mass or hematoma. OTHER: No other significant finding. IMPRESSION: No evidence of acute intracranial process. EVIDENCE OF ACUTE STROKE: NO. COMMENT: Quality ID # [id number]: Final reports with documentation of one or more dose reduction techniques (e.g., Automated exposure control, adjustment of the mA and/or kV according to patient size, use of iterative reconstruction technique) TECHNICAL DOCUMENTATION: JOB ID: [id number] [employer]- All Rights Reserved Reading location - IP/workstation name: [email or web address]
[2019-06-05 11:29] VITALS: BP 121/83
== END 2019-06-05 11:26 | disposition home or self-care (01) ==
LOC: ER 05:43
DX: S01.511A Laceration without foreign body of lip, initial encounter (principal); X58.XXXA Exposure to other specified factors, initial encounter; R56.9 Unspecified convulsions; Z79.899 Other long term (current) drug therapy
CPT/HCPCS: 12011; 99285; 90471; 96375; 96365; 36415; 85025; 81025; 80053; 81001; 80307; 83605; 70450; J3490 ×2; J2060; J1953; 90715

== ENCOUNTER 2019-06-11 16:24 | Emergency (ER) | payer OTHER ==
[2019-06-11 16:31] VITALS: BP 131/69
[2019-06-11] MEDS ORDERED: CLINDAMYCIN HCL 150 MG CAPSULE PO ONE (17:04)
--- NOTE | 2019-06-11 17:08 | ER Document Report ---
HPI - HPI Patient complains to provider of: suture removal Time Seen by Provider: 06/11/19 16:55 Onset: Last week Onset/Duration: Better Pain Level: 0 Context: Patient presents for suture removal to lip laceration. Patient states she had a seizure and fell and suspects that her tooth cut her inside upper lip. The patient was placed on Keflex. Patient complains of continued tenderness and swelling to the lip. Patient denies any dental fracture Associated Symptoms: Other - lip laceration. denies: Fever, Headache, Vomiting Exacerbated by: Denies Relieved by: Denies Similar symptoms previously: No Recently seen / treated by doctor: Yes - ROS ROS below otherwise negative: Yes Systems Reviewed and Negative: Yes All other systems reviewed and negative - CONSTITUTIONAL Constitutional: DENIES: Fever, Chills - EENT Notes: lip swelling - GASTROINTESTINAL Gastrointestinal: DENIES: Nausea, Patient vomiting - REPRODUCTIVE Reproductive: DENIES: : - DERM Skin Color: Normal Skin Problems: Laceration Past Medical History - General Information source: Patient - Social History Smoking Status: Never Smoker Frequency of alcohol use: None Drug Abuse: None Family History: Reviewed & Not Pertinent Patient has suicidal ideation: No Patient has homicidal ideation: No Neurological Medical History: Reports: Hx Seizures - SEIZURE X 1, 2 YEARS AGO, NO MEDS, NO SEIZURE SINCE Renal/ Medical History: Denies: Hx Peritoneal Dialysis Past Surgical History: Reports: Hx Abdominal Surgery - hernia repair, Hx Orthopedic Surgery - L ACL, Bilat shoulders w/hardware - Immunizations Immunizations up to date: Yes Hx Diphtheria, Pertussis, Tetanus Vaccination: Yes Vertical Provider Document - CONSTITUTIONAL Agree With Documented VS: Yes Exam Limitations: No Limitations General Appearance: WD/WN, No Apparent Distress - INFECTION CONTROL TRAVEL OUTSIDE OF THE [place] IN LAST 30 DAYS: No - HEENT HEENT: Normocephalic Notes: Patient with 5 intact sutures to left upper lip that does cross the vermilion border, wound edges approximated with no surrounding erythema or purulent drainage. Patient with healing intraoral laceration to the inside upper lip, no purulent drainage noted. Pt with moderate swelling to lateral upper lip - NECK Neck: Normal Inspection, Supple - RESPIRATORY Respiratory: Breath Sounds Normal, No Respiratory Distress - CARDIOVASCULAR Cardiovascular: Regular Rate, Regular Rhythm - MUSCULOSKELETAL/EXTREMETIES Musculoskeletal/Extremeties: MAEW - NEURO Level of Consciousness: Awake, Alert, Appropriate Motor/Sensory: No Motor Deficit - DERM Integumentary: Warm, Dry, Laceration - Sutured laceration to the left upper lip with 5 intact sutures no surrounding erythema. Patient does have open laceration to the inside upper lip Course - Re-evaluation Re-evalutation: 06/11/19 17:37 Will write prescription for chlorhexidine mouthwash and also change prescription to clindamycin given continued swelling and tenderness to the lip area and concern about oral laceration. External lip laceration appears to be healing well without complication. - Vital Signs Vital signs: Temp Pulse Resp BP Pulse Ox 98.3 F 80 18 131/69 H 98 06/11/19 16:30 06/11/19 16:30 06/11/19 16:30 06/11/19 16:30 06/11/19 16:30 Discharge - Discharge Clinical Impression: Visit for suture removal Laceration of oral cavity Qualifiers: Encounter type: initial encounter Qualified Code(s): S01.512A - Laceration without foreign body of oral cavity, initial encounter Condition: Stable Disposition: HOME, SELF-CARE Instructions: Clindamycin ([facility]), Oral Laceration, Not Sutured ([facility]), Suture Rem oval Additional Instructions: Return immediately for any new or worsening symptoms Followup with your primary care provider, call tomorrow to make a followup appointment Discontinue use of the Keflex and instead start the clindamycin Prescriptions: Clindamycin HCl [Cleocin Hcl] 300 mg PO QID #28 capsule Chlorhexidine Gluconate [Periogard] 15 ml MM BID #473 mouthwash [facility]errals: [facility] [Primary Care Provider] - Follow up in 3-5 days
== END 2019-06-11 17:20 | disposition home or self-care (01) ==
LOC: ER 16:24
DX: S01.511D Laceration without foreign body of lip, subsequent encounter (principal); W19.XXXD Unspecified fall, subsequent encounter
CPT/HCPCS: 99281

== ENCOUNTER 2019-10-25 20:53 | Emergency (ER) | payer OTHER ==
[2019-10-25] MEDS ORDERED: NORMAL SALINE 1000 ML 1,000 ML IV ONE (22:16)
[2019-10-25] MEDS ORDERED: ONDANSETRON HCL INJ/PF 4 MG/2 ML SDV IV ONE (22:16)
[2019-10-25] MEDS ORDERED: LORAZEPAM INJ 2 MG/1 ML VIAL IV ONE (22:55)
[2019-10-25] MEDS ORDERED: LEVETIRACETAM 1000 MG/NACL-ISO 1,000 MG/100 ML RTUPB IV ONE (22:56)
[2019-10-25] MEDS ORDERED: KETOROLAC TROMETHAMINE INJ/PF 30 MG/1 ML SDV IV ONE (22:56)
[2019-10-25 22:59] LABS: ABSOLUTE LYMPHOCYTES (AUTO) 1.2 10^3/uL (0.5-4.7); ABSOLUTE MONOCYTES (AUTO) 0.5 10^3/uL (0.1-1.4); ABSOLUTE NEUT (AUTO) 2.6 10^3/uL (1.7-8.2); BASOPHILS % (AUTO) 0.3 % (0-2); EOSINOPHILS % (AUTO) 0.2 % (0-6); HEMATOCRIT 32.6 % (36.0-47.0); HEMOGLOBIN 11.1 g/dL (12.0-15.5); LYMPHOCYTES % (AUTO) 27.7 % (13-45); MEAN CORPUSCULAR HEMOGLOBIN 26.2 pg (27.0-33.4); MEAN CORPUSCULAR HGB CONC 34.1 g/dL (32.0-36.0); MEAN CORPUSCULAR VOLUME 77 fl (80-97); MONOCYTES % (AUTO) 12.1 % (3-13); PLATELET COUNT 142 10^3/uL (150-450); RED BLOOD COUNT 4.25 10^6/uL (3.72-5.28); RED CELL DISTRIBUTION WIDTH 15.8 % (11.5-14.0); SEGMENTED NEUTROPHILS % (AUTO) 59.7 % (42-78); TOTAL CELLS COUNTED % (AUTO) 100 %; WHITE BLOOD COUNT 4.3 10^3/uL (4.0-10.5)
[2019-10-25 23:16] LABS: ALBUMIN 4.1 g/dL (3.5-5.0); ALKALINE PHOSPHATASE 79 U/L (38-126); ANION GAP 6 (5-19); ASPARTATE AMINO TRANSFERASE 31 U/L (14-36); BILIRUBIN,DIRECT 0.1 mg/dL (0.0-0.4); BILIRUBIN,TOTAL 0.7 mg/dL (0.2-1.3); BLOOD UREA NITROGEN 12 mg/dL (7-20); CARBON DIOXIDE 22 mmol/L (22-30); CHLORIDE 107 mmol/L (98-107); GLUCOSE 105 mg/dL (75-110); POTASSIUM 3.7 mmol/L (3.6-5.0); TOTAL PROTEIN 7.3 g/dL (6.3-8.2)
--- NOTE | 2019-10-25 23:49 | RADIOLOGY REPORT (SQ) ---
INDICATION: back pain post seizure. TECHNIQUE: 3 view(s) of the thoracic spine. COMPARISON: None FINDINGS: No evidence of acute displaced fracture. Alignment is anatomic. The facets and intervertebral joints are within normal limits for age. Vertebral body heights are well-maintained. Surrounding soft tissues are unremarkable. IMPRESSION: No evidence of acute displaced fracture of the thoracic spine. The cause of the patient's back pain post trauma is not identified on this examination.
--- NOTE | 2019-10-26 00:11 | ER Document Report ---
Entered by ALLAN JOHNSON SCRIBE 10/25/19 8915 Acting as scribe for:GIBSON ANGULO IV, MD ED General - General Chief Complaint: Nausea/Vomiting Stated Complaint: SEIZURE Time Seen by Provider: 10/25/19 22:45 [facility] Care Provider: [facility] [[facility]] - Follow up as needed Information source: Patient Notes: This 34-year-old female with a history of seizures presents to the emergency department complaining of vomiting for the past two days. Patient states that she believes she had a seizure on 10/23/2019 (two days ago) while she was sleeping because she woke up and noticed urinary and bowel incontinence. Patient states that after this she has felt nausea and has vomited excessively. Patient states that she has not been able to swallow her seizure medication because she vomits them back up. Patient reports middle back pain which hurts to touch and is relieved with a heating pad with laying. DDx: Seizure disorder, medicine non-compliance and . TRAVEL OUTSIDE OF THE [place] IN LAST 30 DAYS: No - Related Data Allergies/Adverse Reactions: bees/wasps Allergy (Uncoded 06/11/19 16:47) Past Medical History - General Information source: Patient - Social History Smoking Status: Never Smoker Cigarette use (# per day): No Chew tobacco use (# tins/day): No Family History: Reviewed & Not Pertinent Patient has suicidal ideation: No Patient has homicidal ideation: No Past Surgical History: Reports: Hx Abdominal Surgery - hernia repair, Hx Orthopedic Surgery - L ACL, Bilat shoulders w/hardware - Immunizations Immunizations up to date: Yes Hx Diphtheria, Pertussis, Tetanus Vaccination: Yes Review of Systems - Review of Systems Constitutional: No symptoms reported EENT: No symptoms reported Cardiovascular: No symptoms reported Respiratory: No symptoms reported Gastrointestinal: See HPI, Nausea, Vomiting Genitourinary: No symptoms reported Female Genitourinary: No symptoms reported Musculoskeletal: See HPI, Back pain Skin: No symptoms reported Hematologic/Lymphatic: No symptoms reported Neurological/Psychological: No symptoms reported -: Yes All other systems reviewed and negative Physical Exam - Vital signs Vitals: Temp Resp BP 99.0 F 18 151/79 H 10/25/19 20:57 10/25/19 20:57 10/25/19 20:57 - Notes Notes: Physical Exam: General: Alert, tearful and does not make good eye contact throughout exam. HEENT: Normocephalic. Atraumatic. PERRL. Extraocular movements intact. Oropharynx clear. Neck: Supple. Non-tender. Respiratory: No respiratory distress. Clear and equal breath sounds bilaterally. Cardiovascular: Regular rate and rhythm. Abdominal: Normal Inspection. Non-tender. No distension. Normal Bowel Sounds. Back: No gross abnormalities. Extremities: Moves all four extremities. Upper extremities: Normal inspection. Normal ROM. Lower extremities: Normal inspection. No edema. Normal ROM. Neurological: Normal cognition. AAOx4. Normal speech. Psychological: Normal affect. Normal Mood. Skin: Warm. Dry. Normal color. Course - Re-evaluation Re-evalutation: 10/26/19 00:51 Results of ED MSE discussed with patient. All questions were answered prior to discharge. Emergency signs and symptoms, reasons to return to the emergency department discussed with patient. - Vital Signs Vital signs: Temp Pulse Resp BP Pulse Ox 99.0 F 24 H 125/74 100 10/25/19 20:57 10/25/19 21:36 10/25/19 21:35 10/25/19 21:36 - Laboratory Result Diagrams: 10/25/19 22:47 10/25/19 22:47 Laboratory results interpreted by me: 10/25/19 10/25/19 10/26/19 22:47 22:47 00:10 Hgb 11.1 L Hct 32.6 L MCV 77 L MCH 26.2 L RDW 15.8 H Plt Count 142 L Sodium 135.2 L Urine Protein 100 H Urine Ketones 80 H Urine Bilirubin MODERATE H Urine Urobilinogen 4.0 H Urine Ascorbic Acid 20 H - Diagnostic Test Radiology reviewed: Reports reviewed Discharge - Discharge Clinical Impression: Seizure disorder Nausea and vomiting Qualifiers: Vomiting type: unspecified Vomiting Intractability: non-intractable Qualified Code(s): R11.2 - Nausea with vomiting, unspecified Acute back pain Qualifiers: Back pain location: thoracic back pain Back pain laterality: midline Qualified Code(s): M54.6 - Pain in thoracic spine Condition: Good Disposition: HOME, SELF-CARE Instructions: Antinausea Medication ([facility]), Vomiting ([facility]) Additional Instructions: Return to the Emergency Department without delay if any worse. HOME CARE INSTRUCTIONS & INFORMATION: Thank you for choosing us for your medical needs. We hope you're satisfied with the care you received. After you leave, you must properly care for your problem and, at the same time, observe its progress. Any condition can change. Some illnesses can change rapidly over hours or days. If your condition worsens, return to the Emergency Department or see your physician promptly. ABOUT YOUR X-RAYS AND EKG'S: If you had an EKG or X-rays taken, they have been read by the Emergency Physician. The X-rays and EKG's will also be read by a Radiologist or Hitting Coach within 24 hours. If discrepancies are noted, you will be notified by telephone. Please be certain the ED has a correct telephone number & address where you can be reached. Also, realize that some fractures or abnormalities do not show up on initial X-rays. If your symptoms continue, see your physician. ABOUT YOUR LABORATORY TEST: If you had laboratory tests, the results have been reviewed by the Emergency Physician. Some test results (for example cultures) may not be available for several days. You will be contacted if any test result shows you need additional treatment. Please be certain the ED has a correct telephone number and address where you can be reached. ABOUT YOUR MEDICATIONS: You will receive instructions on how to take your medic ine on the prescription label you receive. Additional information may be provided by the Pharmacy. If you have questions afterwards, call the ED for clarification or further instructions. Some prescribed medications may cause drowsiness. Do not perform tasks such as driving a car or operating machinery without consulting your Pharmacist. If you feel you need a refill of pain medication, your condition will need re-evaluation. Please do not call for a refill of any medication. ABOUT YOUR SIGNATURE: Signature of this document acknowledges to followin. Understanding that you received emergency treatment and that you may be released before al medical problems are known or treated. Please be certain the ED has a correct phone number & address where you can be reached. 2. Acknowledgement that you will arrange for follow-up care as recommended. 3. Authorization for the Emergency Physician to provide information to your follow-up Physician in order to maximize your care. AT ANY TIME, IF YOUR SYMPTOMS CHANGE SIGNIFICANTLY OR WORSEN OR YOU DEVELOP NEW SYMPTOMS, RETURN TO THE EMERGENCY DEPARTMENT IMMEDIATELY FOR RE-EVALUATION. OUR GOAL IS TO PROVIDE EXCELLENT MEDICAL CARE! WE HOPE THAT WE HAVE MET YOUR EXPECTATIONS DURING YOUR EMERGENCY DEPARTMENT VISIT AND THAT YOU FEEL YOU HAVE RECEIVED EXCELLENT CARE! Prescriptions: Ondansetron [Zofran Odt 4 mg Tablet] 1 tab PO Q8HP PRN #[id number] tab.rapdis PRN Reason: For Nausea/Vomiting Referrals: [facility] [Primary [facility] Provider] - Follow up as needed I personally performed the services described in the documentation, reviewed and edited the documentation which was dictated to the scribe in my presence, and it accurately records my words and actions.
[2019-10-26 00:38] LABS: APPEARANCE,URINE SLIGHTLY-CLOUDY; BILIRUBIN,URINE MODERATE (NEGATIVE); COLOR,URINE AMBER; GLUCOSE, URINE NEGATIVE (NEGATIVE); KETONES,URINE 80 mg/dL (NEGATIVE); LEUKOCYTE ESTERASE,URINE NEGATIVE (NEGATIVE); NITRITE,URINE NEGATIVE (NEGATIVE); PROTEIN,URINE 100 mg/dL (NEGATIVE); URINE SPECIFIC GRAVITY 1.034
[2019-10-26] MEDS ORDERED: HYDROCODONE/ACETAMINOPHEN 5-325 MG (6 TAB/ER DISP) PO PRN (00:49)
[2019-10-26] MEDS ORDERED: ONDANSETRON ODT 4 MG TAB (6 TAB/ER DISP) PO PRN (00:50)
[2019-10-26 01:18] VITALS: BP 119/68
== END 2019-10-26 01:30 | disposition home or self-care (01) ==
LOC: ER 20:53
DX: G40.909 Epilepsy, unspecified, not intractable, without status epilepticus (principal); R11.2 Nausea with vomiting, unspecified; M54.6 Pain in thoracic spine; M54.9 Dorsalgia, unspecified; Z79.899 Other long term (current) drug therapy
CPT/HCPCS: 99284; 96361; 96374; 96375; 36415; 84703; 85025; 81025; 80053; 81001; 72070; J1885; J2060; J2405; J7030; J1953

== ENCOUNTER 2020-05-13 04:11 | Emergency (ER) | payer OTHER ==
[2020-05-13 04:29] VITALS: BP 100/65
[2020-05-13 05:44] LABS: APPEARANCE,URINE CLOUDY; BILIRUBIN,URINE NEGATIVE (NEGATIVE); COLOR,URINE YELLOW; GLUCOSE, URINE NEGATIVE (NEGATIVE); KETONES,URINE NEGATIVE (NEGATIVE); LEUKOCYTE ESTERASE,URINE NEGATIVE (NEGATIVE); NITRITE,URINE NEGATIVE (NEGATIVE); PROTEIN,URINE NEGATIVE (NEGATIVE); URINE SPECIFIC GRAVITY 1.013; UROBILINOGEN,URINE NEGATIVE mg/dL (<2.0)
[2020-05-13 05:53] LABS: URINE AMPHETAMINES SCREEN NEGATIVE; URINE BARBITURATES SCREEN NEGATIVE; URINE BENZODIAZEPINES SCREEN NEGATIVE; URINE COCAINE SCREEN NEGATIVE; URINE METHADONE SCREEN NEGATIVE; URINE PHENCYCLIDINE SCREEN NEGATIVE
[2020-05-13 05:58] LABS: URINE MARIJUANA (THC) SCREEN UNCONFIRMED POSITIVE
[2020-05-13 06:23] LABS: HEMOGLOBIN 12.6 g/dL (12.0-15.5); RED CELL DISTRIBUTION WIDTH 13.9 % (11.5-14.0); TOTAL CELLS COUNTED % (AUTO) 100 %
[2020-05-13 06:29] LABS: ABSOLUTE LYMPHOCYTES (AUTO) 1.1 10^3/uL (0.5-4.7); ABSOLUTE MONOCYTES (AUTO) 0.4 10^3/uL (0.1-1.4); ABSOLUTE NEUT (AUTO) 5.5 10^3/uL (1.7-8.2); BASOPHILS % (AUTO) 0.1 % (0-2); EOSINOPHILS % (AUTO) 0.2 % (0-6); HEMATOCRIT 36.2 % (36.0-47.0); LYMPHOCYTES % (AUTO) 15.7 % (13-45); MEAN CORPUSCULAR HEMOGLOBIN 30.3 pg (27.0-33.4); MEAN CORPUSCULAR HGB CONC 34.8 g/dL (32.0-36.0); MEAN CORPUSCULAR VOLUME 87 fl (80-97); MONOCYTES % (AUTO) 5.9 % (3-13); PLATELET COUNT 143 10^3/uL (150-450); RED BLOOD COUNT 4.17 10^6/uL (3.72-5.28); SEGMENTED NEUTROPHILS % (AUTO) 78.1 % (42-78); WHITE BLOOD COUNT 7.1 10^3/uL (4.0-10.5)
[2020-05-13 06:33] LABS: ALBUMIN 3.6 g/dL (3.5-5.0); ALKALINE PHOSPHATASE 81 U/L (38-126); ANION GAP 5 (5-19); ASPARTATE AMINO TRANSFERASE 36 U/L (14-36); BILIRUBIN,DIRECT 0.1 mg/dL (0.0-0.4); BILIRUBIN,TOTAL 1.5 mg/dL (0.2-1.3); BLOOD UREA NITROGEN 9 mg/dL (7-20); CALCIUM 8.8 mg/dL (8.4-10.2); CARBON DIOXIDE 25 mmol/L (22-30); CHLORIDE 108 mmol/L (98-107); GLUCOSE 104 mg/dL (75-110); POTASSIUM 3.4 mmol/L (3.6-5.0); TOTAL PROTEIN 6.8 g/dL (6.3-8.2)
[2020-05-13 06:34] LABS: ALCOHOL < 10 mg/dL (NONE DETECTED)
--- NOTE | 2020-05-13 13:02 | EKG REPORT ---
SEVERITY:- BORDERLINE ECG - SINUS RHYTHM BORDERLINE PROLONGED QT INTERVAL : Confirmed by: Preet Schmidt MD 13-May-2020 13:01:34
== END 2020-05-13 06:42 | disposition left against medical advice (07) ==
LOC: ER 04:11
DX: Z53.21 Procedure and treatment not carried out due to patient leaving prior to being seen by health care provider (principal)
CPT/HCPCS: 36415; 80053; 80307; 81001; 83735; 84703; 85025; 93005; 93010